=== PATIENT | female | born 1975 | race Caucasian/White ===

== ENCOUNTER 2021-04-18 10:20 | Inpatient (IN) | payer SELFPAY ==
[~2021-04-18] VITALS: Ht 172 cm; Wt 90.0 kg
[2021-04-18] VITALS (8 sets, daily range): BP systolic 117–140; BP diastolic 81–104
[~2021-04-18 10:20] MED LIST: BUTA-234 PO; CYCL10TA9 PO; DCS100C PO; DOXY100C2 PO; HCT25T PO; HYDR-3454 PO; HYDR-707 PO; HYDR-757 PO; HYDR1TAB PO; IBP600T1 PO; IBUP800T26 PO; LABE100T2 PO; LEVO175T3 PO; LEVO75TA57; LISI1TAB10 PO; LVT.1T PO; METF-380 PO; METH4TAB PO; NAPR-243 PO; NITR100C3 PO; PRD20T PO; PREG100C22 PO; PREN1TAB39 PO; PROM25SU10 PR; TRM50T PO; TYLENOL
[2021-04-18] MEDS ORDERED: fentaNYL INJ 100 MCG/2 ML AMP IVP STA ×2 (10:55→13:28)
[2021-04-18] MEDS ORDERED: NS IV 1000 ML 1,000 ML IV STA (10:55)
[2021-04-18] MEDS ORDERED: ONDANSETRON 4 MG/2 ML (SDV) Z0FRAN IVP ONE (11:00)
--- NOTE | 2021-04-18 11:00 | ED Abdominal Pain ---
General Chief Complaint: Abdominal/GI Problems Stated Complaint: ABD PAIN Nursing Triage Note: ARRIVED VIA WC TO ROOM 08. COMPLAINS OF SEVERE ABD PAIN STARTING IN THE MIDDLE OF THE NIGHT. STATES THIS HAPPENED BEFORE AND SHE HAD A RUPTURED COLON AND HAD 24" REMOVED. Source of Information: Patient Exam Limitations: No Limitations History of Present Illness Date Seen by Provider: Apr 18, 2021 Time Seen by Provider: 10:57 Initial Comments Patient is a 46-year-old female presents ED with abdominal pain. Sharp stabbing generalized abdominal pain started yesterday evening and has increased. Pain is worse in her mid upper abdomen. History of bowel resection secondary to diverticulitis with perforation., Cholecystectomy, tubal ligation, hysterectomy. She reports nausea with vomiting yesterday. Nauseous today. She had a normal bowel movement today. She states this feels very similar to her perforation bowel. Denies chest pain, cough, sore throat, wheezing, headache, dizziness. Denies taking thing for pain. Patient in moderate distress on arrival. She states she is urinating frequently this appears normal. Allergies and Home Medications Allergies Coded Allergies: meperidine (Unverified Allergy, Mild, 03/29/09) morphine (Unverified Allergy, Mild, 06/11/08) prochlorperazine (Unverified Allergy, Mild, 06/11/08) ketamine (Verified Allergy, Unknown, 04/18/21) Patient Home Medication List Home Medication List Reviewed: Yes Levothyroxine Sodium (Levothyroxine Sodium) 200 Mcg Tablet, 200 MCG PO DAILY, (Reported) Entered as Reported by: EMIL TEE on 04/18/21 1429 Last Action: Reviewed Naproxen Sodium (Aleve) 220 Mg Tablet, 220 MG PO DAILY PRN for PAIN-MILD (1-4), (Reported) Entered as Reported by: EMIL TEE on 04/18/21 1431 Last Action: Reviewed Review of Systems Review of Systems Constitutional: No chills, No diaphoresis, No fever, No malaise EENTM: No Eye Pain, No Eye Tearing, No Throat Pain, No Throat Swelling Respiratory: Denies Cough, Denies SOA With Exertion, Denies SOA at Rest Cardiovascular: Denies Chest Pain, Denies Edema Gastrointestinal: Abdominal Pain; Denies Constipated, Denies Diarrhea, Denies Difficulty Swallowing, Denies Nausea, Denies Vomiting Genitourinary: Denies Drainage Musculoskeletal: No back pain, No muscle pain, No muscle stiffness Skin: No change in color, No change in hair/nails All Other Systems Reviewed Negative Unless Noted: Yes Past [id number]-[id number] Hx Patient Social History Smoking Status: Current Everyday Smoker Substance use?: Yes Substance type: Marijuana Alcohol Use?: No Past Medical History Section, Gallbladder, Tubal Ligation Hypertension Physical Exam Vital Signs Vital Signs - First Documented 04/18/21 10:27 Temp 36.1 Pulse 93 Resp 16 B/P (MAP) 163/120 (134) Pulse Ox 100 O2 Delivery Room Air Capillary Refill : Less Than 3 Seconds Height/Weight/BMI Height: 5'8" Weight: 294lbs. oz. [id number]; 30.00 BMI Method:Stated General Appearance: WD/WN, no apparent distress HEENT: PERRL/EOMI, normal ENT inspection, TMs normal Neck: non-tender, full range of motion, supple, normal inspection Respiratory: chest non-tender, lungs clear, normal breath sounds, no respiratory distress Cardiovascular: regular rate, rhythm, no edema, no gallop, no JVD, no murmur Gastrointestinal: normal bowel sounds, no organomegaly, no pulsatile mass, tenderness (Generalized tenderness, mid upper abdominal tenderness with guarding. 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 as tested, no motor/sensory deficits, alert, normal mood/affect, oriented x 3 Progress/Results/Core Measures Results/Orders Lab Results Laboratory Tests Test 04/18/21 10:34 04/18/21 12:07 Range/Units White Blood Count 12.1 H 4.3-11.0 10^3/uL Red Blood Count 4.24 3.80-5.11 10^6/uL Hemoglobin 6.9 *L 11.5-16.0 g/dL Hematocrit 26 L 35-52 % Mean Corpuscular Volume 62 L 80-99 fL Mean Corpuscular Hemoglobin 16 L 25-34 pg Mean Corpuscular Hemoglobin Concent 26 L 32-36 g/dL Red Cell Distribution Width 20.5 H 10.0-14.5 % Platelet Count 606 H 130-400 10^3/uL Mean Platelet Volume 9.6 9.0-12.2 fL Immature Granulocyte % (Auto) 1 % Neutrophils (%) (Auto) 66 42-75 % Lymphocytes (%) (Auto) 24 12-44 % Monocytes (%) (Auto) 6 0-12 % Eosinophils (%) (Auto) 3 0-10 % Basophils (%) (Auto) 1 0-10 % Neutrophils # (Auto) 8.0 H 1.8-7.8 10^3/uL Lymphocytes # (Auto) 2.8 1.0-4.0 10^3/uL Monocytes # (Auto) 0.7 0.0-1.0 10^3/uL Eosinophils # (Auto) 0.4 H 0.0-0.3 10^3/uL Basophils # (Auto) 0.1 0.0-0.1 10^3/uL Immature Granulocyte # (Auto) 0.1 0.0-0.1 10^3/uL Sodium Level 134 L 135-145 MMOL/L Potassium Level 3.7 3.6-5.0 MMOL/L Chloride Level 104 98-107 MMOL/L Carbon Dioxide Level 20 L 21-32 MMOL/L Anion Gap 10 5-14 MMOL/L Blood Urea Nitrogen 11 7-18 MG/DL Creatinine 0.89 0.60-1.30 MG/DL Estimat Glomerular Filtration Rate 82 BUN/Creatinine Ratio 12 Glucose Level 87 70-105 MG/DL Calcium Level 10.4 H 8.5-10.1 MG/DL Corrected Calcium 10.2 H 8.5-10.1 MG/DL Total Bilirubin 0.2 0.1-1.0 MG/DL Aspartate Amino Transf (AST/SGOT) 13 5-34 U/L Alanine Aminotransferase (ALT/SGPT) 6 0-55 U/L Alkaline Phosphatase 70 40-136 U/L Total Protein 8.1 6.4-8.2 GM/DL Albumin 4.3 3.2-4.5 GM/DL Lipase 8 8-78 U/L Urine Color YELLOW Urine Clarity SL CLOUDY Urine pH 7.0 5-9 Urine Specific Prue 1.010 L 1.016-1.022 Urine Protein NEGATIVE NEGATIVE Urine Glucose (UA) NEGATIVE NEGATIVE Urine Ketones NEGATIVE NEGATIVE Urine Nitrite POSITIVE H NEGATIVE Urine Bilirubin NEGATIVE NEGATIVE Urine Urobilinogen 0.2 < = 1.0 MG/DL Urine Leukocyte Esterase 2+ H NEGATIVE Urine RBC (Auto) NEGATIVE NEGATIVE Urine RBC 2-5 H /HPF Urine WBC 10-25 H /HPF Urine Squamous Epithelial Cells 2-5 /HPF Urine Crystals NONE /LPF Urine Bacteria LARGE H /HPF Urine Casts PRESENT /LPF Urine Granular Casts 0-2 H /LPF Urine Mucus NEGATIVE /LPF Urine Culture Indicated YES My Orders Orders - HAYLEY NEWMAN Cbc With Automated Diff (04/18/21 10:51) Comprehensive Metabolic Panel (04/18/21 10:51) Lipase (04/18/21 10:51) Ua Culture If Indicated (04/18/21 10:51) Ondansetron Injection (Zofran Injectio (04/18/21 11:00) Ns Iv 1000 Ml (Sodium Chloride 0.9%) (04/18/21 10:55) Fentanyl Inj (Sublimaze Injection) (04/18/21 10:55) Ct Abdomen/Pelvis W (04/18/21 10:56) Iohexol Injection (Omnipaque 350 Mg/Ml 1 (04/18/21 11:30) Received Contrast (Hold Metformin- Contr (04/18/21 11:30) Ns (Ivpb) (Sodium Chloride 0.9% Ivpb Bag (04/18/21 11:30) Sodium Chloride Flush (Catheter Flush Sy (04/18/21 11:30) Type And Screen (04/18/21 11:28) Pantoprazole Injection (Protonix Injecti (04/18/21 11:30) Pantoprazole Injection (Protonix Injecti (04/18/21 11:34) Urine Culture (04/18/21 12:07) Red Cells Leukocytes Reduced (04/18/21 12:31) Admission Order(Inpt,Obs,Sdc) (04/18/21 12:35) Cbc With Automated Diff (04/19/21 05:00) Comprehensive Metabolic Panel (04/19/21 05:00) Iv Maintain (Order) (04/18/21 12:35) Patient May Use Own Meds, All (Patient M (04/18/21 12:45) Initiate Admission Nursing Pro .admission (04/18/21 12:35) Therapeutic Activity Goals: .PRN (04/18/21 12:35) Naloxone Injection (Narcan Injection) (04/18/21 12:45) Code/Resuscitation (04/18/21 12:35) Ambulate 08,12,20 (04/18/21 12:35) Sequential Compression Device ONCE (04/18/21 12:35) Initiate Admission Nursing Pro .admission (04/18/21 12:35) Medications Given in ED Current Medications Medications Dose Ordered Sig/Galileo Route Start Time Stop Time Status Last Admin Dose Admin Iohexol 100 ml ONCE ONCE IV 04/18/21 11:30 04/18/21 11:31 DC 04/18/21 12:00 97 ML Ondansetron HCl 4 mg ONCE ONCE IVP 04/18/21 11:00 04/18/21 11:01 DC 04/18/21 11:14 4 MG Pantoprazole 80 mg ONCE ONCE IV 04/18/21 11:30 04/18/21 11:31 DC 04/18/21 11:35 80 MG Sodium Chloride 10 ml NEEDED PRN IV 04/18/21 11:30 04/18/21 12:02 10 ML Sodium Chloride 100 ml ONCE ONCE IV 04/18/21 11:30 04/18/21 11:31 DC 04/18/21 12:02 80 ML Vital Signs/I&O 04/18/21 10:27 Temp 36.1 Pulse 93 Resp 16 B/P (MAP) 163/120 (134) Pulse Ox 100 O2 Delivery Room Air Blood Pressure Mean: 134 Departure Communication (Admissions) Time/Spoke to Admitting Phy: 12:[address] Moctezuma regarding possible closed-loop bowel ob struction. Recommends n.p.o. and will consult. Potential surgery may be needed. Patient does have a history of anemia iron deficiency. Not currently on supplementation. History of fusions of the past. Her hemoglobin was 6.9. Low hematocrit. Hemoccult negative. She does take Motrin daily. Patient was ordered 1 unit of blood transfusion. Was given IV Protonix 80 mg. Due to current symptoms and findings patient will be admitted to the hospitalist. Discussed patient Dr. Marcelino who agrees except patient at this time. Patient pain improved. No active vomiting. Currently n.p.o. urinalysis concerning for UTI. She was given a dose of Rocephin here. Impression Primary Impression: Anemia Additional Impression: Abdominal pain Disposition: 09 ADMITTED INPATIENT Condition: Stable Admissions Decision to Admit Reason: Admit from ER (General) Decision to Admit/Date: Apr 18, 2021 Time/Decision to Admit Time: 12:44 Departure-Patient Inst. Referrals: NO,LOCAL PHYSICIAN (PCP/Family) Primary Care Physician HAYLEY NEWMAN Apr 18, 2021 11:00
[2021-04-18 11:17] LABS: BASOPHILS # (AUTO) 0.1 10^3/uL (0.0-0.1); BASOPHILS % (AUTO) 1 % (0-10); EOSINOPHILS # (AUTO) 0.4 10^3/uL (0.0-0.3); EOSINOPHILS % (AUTO) 3 % (0-10); HEMATOCRIT 26 % (35-52); LYMPHOCYTES # (AUTO) 2.8 10^3/uL (1.0-4.0); LYMPHOCYTES % (AUTO) 24 % (12-44); MEAN CORPUSCULAR HEMOGLOBIN 16 pg (25-34); MEAN CORPUSCULAR HGB CONC 26 g/dL (32-36); MEAN CORPUSCULAR VOLUME 62 fL (80-99); MEAN PLATELET VOLUME 9.6 fL (9.0-12.2); MONOCYTES # (AUTO) 0.7 10^3/uL (0.0-1.0); MONOCYTES % (AUTO) 6 % (0-12); NEUTROPHILS % (AUTO) 66 % (42-75); PLATELET COUNT 606 10^3/uL (130-400); WHITE BLOOD COUNT 12.1 10^3/uL (4.3-11.0)
[2021-04-18 11:28] LABS: HEMOGLOBIN 6.9 g/dL (11.5-16.0)
[2021-04-18 11:29] LABS: ALBUMIN 4.3 GM/DL (3.2-4.5)
[2021-04-18 11:30] LABS: POTASSIUM 3.7 MMOL/L (3.6-5.0)
[2021-04-18] MEDS ORDERED: NS 100 ML (IVPB) BAG IV ONE (11:30)
[2021-04-18] MEDS ORDERED: CATHETER FLUSH 10 ML SYR IV PRN (11:30)
[2021-04-18] MEDS ORDERED: IOHEXOL 350 MG/ML 100 ML (OMNIPAQUE 350) VIAL IV ONE (11:30)
[2021-04-18] MEDS ORDERED: PANTOPRAZOLE 40 MG (PROTONIX) VIAL IV ONE (11:30)
[2021-04-18] MEDS ORDERED: HOLD METFORMIN - RECEIVED CONTRAST 20 ML VIAL IV SCH (11:30)
[2021-04-18 11:31] LABS: CALCIUM 10.4 MG/DL (8.5-10.1)
[2021-04-18 11:32] LABS: TOTAL PROTEIN 8.1 GM/DL (6.4-8.2)
[2021-04-18 11:34] LABS: BILIRUBIN,TOTAL 0.2 MG/DL (0.1-1.0)
[2021-04-18] MEDS ORDERED: PANTOPRAZOLE 40 MG (PROTONIX) VIAL ONE (11:34)
[2021-04-18 11:36] LABS: CREATININE SERUM 0.89 MG/DL (0.60-1.30)
[2021-04-18 12:16] LABS: BILIRUBIN,URINE NEGATIVE (NEGATIVE); CLARITY,URINE SL CLOUDY; COLOR,URINE YELLOW; GLUCOSE, URINE (UA) NEGATIVE (NEGATIVE); KETONES,URINE NEGATIVE (NEGATIVE); LEUKOCYTE ESTERASE ,URINE 2+ (NEGATIVE); NITRITE,URINE POSITIVE (NEGATIVE); PROTEIN,URINE NEGATIVE (NEGATIVE)
--- NOTE | 2021-04-18 12:20 | Diagnostic Imaging Report ---
PROCEDURE: CT abdomen and pelvis with contrast. TECHNIQUE: Multiple contiguous axial images were obtained through the abdomen and pelvis after administration of intravenous contrast. Auto Exposure Controls were utilized during the CT exam to meet ALARA standards for radiation dose reduction. All CT scans use one or more of the following dose optimizing techniques: automated exposure control, MA and/or KvP adjustment based on patient size and exam type or iterative reconstruction. INDICATION: Severe abdominal pain. Correlation is made with prior CT from 08/20/2013. The lung bases are clear. A mild low density throughout the liver is again noted consistent with hepatic steatosis. No discrete liver mass is detected. Gallbladder surgically absent. No biliary ductal dilatation is identified. Pancreas and spleen are unremarkable. No adrenal mass is detected. Kidneys show no acute feature. Aorta is nonaneurysmal. Evaluation of bowel loops does show gaseous distended bowel loop in the upper midline abdomen which has the appearance of large bowel. There is a somewhat of a swirling pattern in the central mesentery. There does appear to be transition present in the right lower quadrant features are concerning for a bowel obstruction. Swirling pattern does raise a question of a possible closed-loop obstruction. There are extensive postsurgical changes in the lower abdomen and pelvis. No free fluid or fluid collection is seen apart from trace free fluid in the pelvis. No free air. There is a 5.5 cm cystic mass in the left adnexa, likely ovarian. Uterus and bladder are unremarkable. IMPRESSION: 1. There is a gaseous distended bowel loop in the upper midline abdomen which has the appearance of the distended colonic bowel loop. There is a swirling pattern in the mesentery just inferior to this and the possibility of a closed loop obstruction cannot be entirely excluded. There is no significant bowel wall thickening or pneumatosis present. There is no free air. Remaining bowel loops throughout the abdomen and pelvis are normal caliber. No abscess formation is seen. There are extensive postoperative changes throughout the abdomen and pelvis. Dictated by: Dictated on workstation # [id number]
[2021-04-18 12:25] LABS: BACTERIA,URINE LARGE /HPF; GRANULAR CASTS,URINE 0-2 /LPF
[2021-04-18] MEDS ORDERED: cefTRIAXone 1 GM PRE-MIX 50 ML IV STA (12:43)
[2021-04-18] MEDS ORDERED: PATIENT MAY USE OWN MEDS, ALL PO SCH (12:45)
[2021-04-18] MEDS ORDERED: NALOXONE 0.4 MG/ML 1 ML (NARCAN) VIAL IV PRN (12:45)
--- NOTE | 2021-04-18 13:00 | Consultation - Surgery ---
KATY ELLIS 04/18/21 1300: History of Present Illness History of Present Illness Patient Consulted On(pk/time) 04/18/21 12:56 Date Seen by Provider: Apr 18, 2021 Time Seen by Provider: 12:30 Reason for Visit: abdominal pain History of Present Illness 46 yo female w/ anemia, hypothyroidism and hx of bowel resection presented to the ER with diffuse, severe abdominal pain. The pain was 10/10 at its worst. It was worse with movement and heat did not improve it. The pt had a bout of diverticulitis in May of 2019 that perforated. She had 2 feet of her descending colon removed because it "." She had a colostomy for 6 months, before having reversal surgery in November of that year. The pt states her sx now are similar to how she felt then. The pt last had a bm yesterday which was brown and had no blood. She vomited yesterday. It did not have blood. She has not vomited here. The pt's last colonoscopy and EGD were in November of 2019. She doesn't know if they found polyps. The pt reports having acid reflux and that the EGD showed acidic changes. No reflux meds reported. The pts Hgb is currently 6.9. Pt denies CP, SOB, fever, diarrhea, and cough at this time. Last ate 6pm yesterday. Allergies and Home Medications Allergies Coded Allergies: meperidine (Unverified Allergy, Mild, 03/29/09) morphine (Unverified Allergy, Mild, 06/11/08) prochlorperazine (Unverified Allergy, Mild, 06/11/08) ketamine (Verified Allergy, Unknown, 04/18/21) Patient Home Medication List Levothyroxine Sodium (Levothyroxine Sodium) 200 Mcg Tablet, 200 MCG PO DAILY, (Reported) Entered as Reported by: EMIL TEE on 04/18/21 1429 Last Action: Reviewed Naproxen Sodium (Aleve) 220 Mg Tablet, 220 MG PO DAILY PRN for PAIN-MILD (1-4), (Reported) Entered as Reported by: EMIL TEE on 04/18/21 1431 Last Action: Reviewed Past Hbhukzz-Pwdfne-Pghwvf Hx Patient Social History Smoking Status: Current Everyday Smoker (1 pack/week for 3-4 years total in her life) Recent Hopitalizations: No Alcohol Use?: Yes (once or twice per year) Substance type: Marijuana (every couple days) Have you traveled recently?: No Surgeries Surgeries: Abdominal (colon resection), Section (four), Gallbladder, Tubal Ligation Respiratory History of Respiratory Disorde: No Cardiovascular History of Cardiac Disorders: No Genitourinary History of Genitourinary Disor: Yes Genitourinary Disorders: Kidney Stones Gastrointestinal History of Gastrointestinal Di: Yes Gastrointestinal Disorders: Gastroesophageal Reflux, Diverticulosis (diverticulitis and colon resection), Gall Bladder Disease Endocrine History of Endocrine Disorders: Yes Endocrine Disorders: Hypothyroidsim Cancer History of Cancer: No Family Medical History Significant Family History: Stroke (mom and sister; sister at 46) Review of Systems-General Constitutional: chills, dizziness (have been recently; not now); No fever; weight loss (lost 160 pounds since 2019) EENTM: No hearing loss, No vision loss Respiratory: No cough, No hemoptysis, No short of breath Cardiovascular: No chest pain, No palpitations Gastrointestinal: abdominal pain; No constipation, No diarrhea, No hematemesis, No heartburn, No melena; nausea, vomiting (yesterday) Musculoskeletal: No joint pain; neck pain (laying down) Skin: No lesions, No rash Psychiatric/Neurological: Denies Anxiety, Denies Depressed, Denies Headache, Denies Seizure Physical Exam-General Problems Physical Exam Vital Signs Vital Signs - First Documented 04/18/21 10:27 Temp 36.1 Pulse 93 Resp 16 B/P (MAP) 163/120 (134) Pulse Ox 100 O2 Delivery Room Air Capillary Refill : Less Than 3 Seconds General Appearance: mild distress, obese, other (lips pale) Eyes: Bilateral Eye Normal Inspection, Bilateral Eye PERRL, Bilateral Eye EOMI HEENT: PERRL/EOMI; No photophobia Neck: supple, normal inspection Respiratory: lungs clear, normal breath sounds, no respiratory distress, no accessory muscle use Cardiovascular: regular rate, rhythm, no murmur Peripheral Pulses: 2+ Radial Pulses (R), 2+ Radial Pulses (L) Gastrointestinal: soft, no pulsatile mass; No guarding; tenderness (diffuse; especially LLQ and epigastric) Extremities: normal inspection, no pedal edema Neurologic/Psychiatric: alert, oriented x 3, other (distressed from pain; te reva) Skin: normal color, warm/dry Data Review Labs Laboratory Tests 04/18/21 10:34: White Blood Count 12.1H, Red Blood Count 4.24, Hemoglobin 6.9*L, Hematocrit 26L, Mean Corpuscular Volume 62L, Mean Corpuscular Hemoglobin 16L, Mean Corpuscular Hemoglobin Concent 26L, Red Cell Distribution Width 20.5H, Platelet Count 606H, Mean Platelet Volume 9.6, Immature Granulocyte % (Auto) 1, Neutrophils (%) (Auto) 66, Lymphocytes (%) (Auto) 24, Monocytes (%) (Auto) 6, Eosinophils (%) (Auto) 3, Basophils (%) (Auto) 1, Neutrophils # (Auto) 8.0H, Lymphocytes # (Auto) 2.8, Monocytes # (Auto) 0.7, Eosinophils # (Auto) 0.4H, Basophils # (Auto) 0.1, Immature Granulocyte # (Auto) 0.1, Sodium Level 134L, Potassium Level 3.7, Chloride Level 104, Carbon Dioxide Level 20L, Anion Gap 10, Blood Urea Nitrogen 11, Creatinine 0.89, Estimat Glomerular Filtration Rate 82, BUN/Creatinine Ratio 12, Glucose Level 87, Calcium Level 10.4H, Corrected Calcium 10.2H, Total Bilirubin 0.2, Aspartate Amino Transf (AST/SGOT) 13, Alanine Aminotransferase (ALT/SGPT) 6, Alkaline Phosphatase 70, Total Protein 8.1, Albumin 4.3, Lipase 8 04/18/21 12:07: Urine Color YELLOW, Urine Clarity SL CLOUDY, Urine pH 7.0, Urine Specific [place] 1.010L, Urine Protein NEGATIVE, Urine Glucose (UA) NEGATIVE, Urine Ketones NEGATIVE, Urine Nitrite POSITIVEH, Urine Bilirubin NEGATIVE, Urine Urobilinogen 0.2, Urine Leukocyte Esterase 2+H, Urine RBC (Auto) NEGATIVE, Urine RBC 2-5H, Urine WBC 10-25H, Urine Squamous Epithelial Cells 2-5, Urine Crystals NONE, Urine Bacteria LARGEH, Urine Casts PRESENT, Urine Granular Casts 0-2H, Urine Mucus NEGATIVE, Urine Culture Indicated YES Radiology CT ABDOMEN/PELVIS W PROCEDURE: CT abdomen and pelvis with contrast. TECHNIQUE: Multiple contiguous axial images were obtained through the abdomen and pelvis after administration of intravenous contrast. Auto Exposure Controls were utilized during the CT exam to meet ALARA standards for radiation dose reduction. All CT scans use one or more of the following dose optimizing techniques: automated exposure control, MA and/or KvP adjustment based on patient size and exam type or iterative reconstruction. INDICATION: Severe abdominal pain. Correlation is made with prior CT from 08/20/2013. The lung bases are clear. A mild low density throughout the liver is again noted consistent with hepatic steatosis. No discrete liver mass is detected. Gallbladder surgically absent. No biliary ductal dilatation is identified. Pancreas and spleen are unremarkable. No adrenal mass is detected. Kidneys show no acute feature. Aorta is nonaneurysmal. Evaluation of bowel loops does show gaseous distended bowel loop in the upper midline abdomen which has the appearance of large bowel. There is a somewhat of a swirling pattern in the central mesentery. There does appear to be transition present in the right lower quadrant features are concerning for a bowel obstruction. Swirling pattern does raise a question of a possible closed-loop obstruction. There are extensive postsurgical changes in the lower abdomen and pelvis. No free fluid or fluid collection is seen apart from trace free fluid in the pelvis. No free air. There is a 5.5 cm cystic mass in the left adnexa, likely ovarian. Uterus and bladder are unremarkable. IMPRESSION: 1. There is a gaseous distended bowel loop in the upper midline abdomen which has the appearance of the distended colonic bowel loop. There is a swirling pattern in the mesentery just inferior to this and the possibility of a closed loop obstruction cannot be entirely excluded. There is no significant bowel wall thickening or pneumatosis present. There is no free air. Remaining bowel loops throughout the abdomen and pelvis are normal caliber. No abscess formation is seen. There are extensive postoperative changes throughout the abdomen and pelvis. Assessment/Plan Assessment/Plan Assessment/Plan Diffuse abdominal pain- possible obstruction Hx colon resection/diverticulitis/perforation 2020 Anemia (Hgb 6.9) Vomiting- resolved HTN (163/120) UTI Negative hemoccult Awaiting exploratory surgery NPO IVFs Will need abx for UTI postop Pain management May need blood transfusion Monitor labs and vitals KARENA ARECHIGA DO 04/18/21 1615: History of Present Illness History of Present Illness Time Seen by Provider: 13:14 History of Present Illness Surgery asked to consent regarding abdominal pain. HPI per ED: Patient is a 46-year-old female presents ED with abdominal pain. Sharp stabbing generalized abdominal pain started yesterday evening and has increased. Pain is worse in her mid upper abdomen. History of bowel resection secondary to diverticulitis with perforation., Cholecystectomy, tubal ligation, hysterectomy. She reports nausea with vomiting yesterday. Nauseous today. She had a normal bowel movement today. She states this feels very similar to her perforation bowel. Denies chest pain, cough, sore throat, wheezing, headache, dizziness. Denies taking thing for pain. Patient in moderate distress on arrival. She states she is urinating frequently this appears normal. When I saw pt she was having pain and when I gently touched her abdomen she started crying and tensed up; pain was severe. She knows she is anemic, but refuses to take the iron. [place] hematochezia or melena. She is worried because this is what it felt like last time she had a portion of colon removed. It is worse than her diverticulitis episode. Allergies and Home Medications Allergies Coded Allergies: meperidine (Unverified Allergy, Mild, 03/29/09) morphine (Unverified Allergy, Mild, 06/11/08) prochlorperazine (Unverified Allergy, Mild, 06/11/08) ketamine (Verified Allergy, Unknown, 04/18/21) Patient Home Medication List Home Medication List Reviewed: Yes Levothyroxine Sodium (Levothyroxine Sodium) 200 Mcg Tablet, 200 MCG PO DAILY, (Reported) Entered as Reported by: EMIL TEE on 04/18/21 1429 Last Action: Reviewed Naproxen Sodium (Aleve) 220 Mg Tablet, 220 MG PO DAILY PRN for PAIN-MILD (1-4), (Reported) Entered as Reported by: EMIL TEE on 04/18/21 1431 Last Action: Reviewed Past Jfxtgje-Bcetob-Simeqm Hx Patient Social History Smoking Status: Current Everyday Smoker (1 pack/week for 3-4 years total in her life) Alcohol Use?: Yes (once or twice per year) Substance type: Marijuana (every couple days) Surgeries History of Surgeries: Yes Surgeries: Abdominal (colon resection), Section (four), Gallbladder, Tubal Ligation Respiratory History of Respiratory Disorde: No Cardiovascular History of Cardiac Disorders: No Neurological History of Neurological Disord: No Genitourinary History of Genitourinary Disor: Yes Genitourinary Disorders: Kidney Stones Gastrointestinal History of Gastrointestinal Di: Yes Gastrointestinal Disorders: Gastroesophageal Reflux, Obstructive Bowel, Diverticulosis (diverticulitis and colon resection), Gall Bladder Disease Musculoskeletal History of Musculoskeletal Dis: No Endocrine History of Endocrine Disorders: Yes Endocrine Disorders: Hypothyroidsim HEENT History of HEENT Disorders: No Cancer History of Cancer: No Psychosocial History of Psychiatric Problem: No Integumentary History of Skin or Integumenta: No Family Medical History Significant Family History: Stroke (mom and sister; sister at 46) Review of Systems-General Constitutional: chills, dizziness (have been recently; not now); No fever; weight loss (lost 160 pounds since 2019) EENTM: No hearing loss, No vision loss Respiratory: No cough, No hemoptysis, No short of breath Cardiovascular: No chest pain, No palpitations Gastrointestinal: abdominal pain; No constipation, No diarrhea, No hematemesis, No heartburn, No melena; nausea, vomiting (yesterday) Genitourinary: No dysuria, No frequency, No hematuria Musculoskeletal: No joint pain; neck pain (laying down) Skin: No lesions, No rash Psychiatric/Neurological: Denies Anxiety, Denies Depressed, Denies Headache, Denies Seizure Physical Exam-General Problems Physical Exam General Appearance: mild distress (but severe after palpation of abdomen), obese, other (lips pale) Eyes: Bilateral Eye PERRL, Bilateral Eye EOMI HEENT: No scleral icterus (R), No scleral icterus (L), No photophobia; other (mucous membranes moist) Neck: supple, normal inspection Respiratory: lungs clear, normal breath sounds, no respiratory distress, no accessory muscle use Cardiovascular: regular rate, rhythm, no murmur Gastrointestinal: soft, no organomegaly, no pulsatile mass, guarding (voluntary), rebound, tenderness (diffuse; especially LLQ and epigastric) Rectal: deferred Back: no CVA tenderness, no vertebral tenderness Extremities: normal inspection, no pedal edema Neurologic/Psychiatric: vp sales II-XII nml as tested, alert, oriented x 3 Skin: normal color, warm/dry Lymphatic: no adenopathy (neck, axilla or groin) Data Review Radiology Date of Exam:04/18/21 CT ABDOMEN/PELVIS W PROCEDURE: CT abdomen and pelvis with contrast. TECHNIQUE: Multiple contiguous axial images were obtained through the abdomen and pelvis after administration of intravenous contrast. Auto Exposure Controls were utilized during the CT exam to meet ALARA standards for radiation dose reduction. All CT scans use one or more of the following dose optimizing techniques: automated exposure control, MA and/or KvP adjustment based on patient size and exam type or iterative reconstruction. INDICATION: Severe abdominal pain. Correlation is made with prior CT from 08/20/2013. The lung bases are clear. A mild low density throughout the liver is again noted consistent with hepatic steatosis. No discrete liver mass is detected. Gallbladder surgically absent. No biliary ductal dilatation is identified. Pancreas and spleen are unremarkable. No adrenal mass is detected. Kidneys show no acute feature. Aorta is nonaneurysmal. Evaluation of bowel loops does show gaseous distended bowel loop in the upper midline abdomen which has the appearance of large bowel. There is a somewhat of a swirling pattern in the central mesentery. There does appear to be transition present in the right lower quadrant features are concerning for a bowel obstruction. Swirling pattern does raise a question of a possible closed-loop obstruction. There are extensive postsurgical changes in the lower abdomen and pelvis. No free fluid or fluid collection is seen apart from trace free fluid in the pelvis. No free air. There is a 5.5 cm cystic mass in the left adnexa, likely ovarian. Uterus and bladder are unremarkable. IMPRESSION: 1. There is a gaseous distended bowel loop in the upper midline abdomen which has the appearance of the distended colonic bowel loop. There is a swirling pattern in the mesentery just inferior to this and the possibility of a closed loop obstruction cannot be entirely excluded. There is no significant bowel wall thickening or pneumatosis present. There is no free air. Remaining bowel loops throughout the abdomen and pelvis are normal caliber. No abscess formation is seen. There are extensive postoperative changes throughout the abdomen and pelvis. Dictated by: Dictated on workstation # [id number] Dict: 04/18/21 1205 Trans: 04/18/21 1547 [facility] [id number] Interpreted by: GEE MCRAE MD Electronically signed by: GEE MCRAE MD 04/18/21 1544 Assessment/Plan Assessment/Plan Assessment/Plan Diffuse abdominal pain- possible obstruction vs volvulus vs internal hernia, Hx colon resection/diverticulitis/perforation 2019 Anemia (Hgb 6.9) -Negative hemoccult Vomiting- resolved HTN (163/120) UTI Plan for Diagnostic Laparoscopy, possible exploratory laparotomy, possible bowel resection, NPO, IV fluids, pain control and anti-emetics as needed Will need abx for UTI postop, May need blood transfusion, Monitor labs and vitals I went over the films myself and then with the Radiologist; I also discussed her care with ER physician and Hospitalist. She is in such severe pain and I am concerned about volvulus or internal hernia (based on CT), that I believe we have to at least go to the OR and look to make sure it is not bad. I think there is a h igh possibility she may need some type of bowel resection. Pt stated do whatever you have to, you have to stop this pain. Went over risks and complications, not limited to pain, bleeding, infection, scar, damage to bowel and need for further procedure. All questions answered to her satisfaction. Supervisory-Addendum Brief Verification & Attestation Participated in pt care: history, MDM, physical Personally performed: exam, history, MDM, supervision of care Care discussed with: Medical Student Procedures: n/a Verification and Attestation of Medical Student E/M Service A medical student performed and documented this service. I then reviewed and verified all information documented by the medical student and made modifications to such information, when appropriate. I personally performed a physical exam, medical decision making and then discussed any differences between the notes and made revisions as necessary to create one note. Karena Arechiga , 04/18/21 , 16:23 KATY ELLIS Apr 18, 2021 13:00 KARENA ARECHIGA DO Apr 18, 2021 16:15
[2021-04-18] MEDS ORDERED: ONDANSETRON 4 MG/2 ML (SDV) Z0FRAN IV PRN (14:15)
--- NOTE | 2021-04-18 14:17 | History & Physical-Hospitalist ---
History of Present Illness HPI/Chief Complaint Pt is a 46-year-old female with a past medical history of bowel resection, hypothyroidism, hypertension who presented to the emergency department due to abdominal pain. She states that it started in the middle of the night all of a sudden. She has a history of a bowel perforation from diverticulitis in May 2019 resulting in a bowel resection. She states the pain felt similar to that prompting her to seek evaluation in the emergency department. She vomited once as well. CT revealed distended bowel loops in the upper midline abdomen and closed-loop obstruction cannot be ruled out. She is being admitted for further management and plan for exploratory laparotomy by surgery. Source: patient Date Seen 04/18/21 Time Seen by a Provider: 14:12 Attending Physician Trae Jorge MD PCP No,Local Physician Referring Physician Date of Admission Apr 18, 2021 at 12:37 Home Medications & Allergies Home Medications Reviewed patient Home Medication Reconciliation performed by pharmacy medication reconciliations studio technician and/or nursing. Patients Allergies have been reviewed. Allergies Allergies Coded Allergies meperidine (Unverified Allergy, Mild, 03/29/09) morphine (Unverified Allergy, Mild, 06/11/08) prochlorperazine (Unverified Allergy, Mild, 06/11/08) ketamine (Verified Allergy, Unknown, 04/18/21) Past Rqrpdhy-Pmozcf-Pcbpwa Hx Patient Social History Employed/Student: employed (veterinary assistant) Smoking Status: Current Someday Smoker Substance use?: Yes Substance type: Marijuana (every couple days) Alcohol Use?: Yes (once or twice per year) Current Status Advance Directives: No Primary Language: Hungarian Preferred Spoken Language: Hungarian Past Medical History Surgeries: Abdominal (colon resection), Bladder Surgery, Section (four), Gallbladder, Tubal Ligation Hypertension (resolved after surgery and weight loss ) Kidney Stones Gastroesophageal Reflux, Diverticulosis (diverticulitis and colon resection), Gall Bladder Disease Hypothyroidsim Family Medical History Reviewed Nursing Family Hx No Pertinent Family Hx, Stroke (mom and sister; sister at 46) Review of Systems Constitutional: No chills, No fever EENTM: no symptoms reported Respiratory: no symptoms reported Cardiovascular: No chest pain, No palpitations Gastrointestinal: abdominal pain, nausea, vomiting Genitourinary: no symptoms reported Musculoskeletal: no symptoms reported Skin: no symptoms reported Psychiatric/Neurological: No Symptoms Reported Physical Exam Physical Exam Vital Signs Vital Signs - First Documented 04/18/21 10:27 Temp 36.1 Pulse 93 Resp 16 B/P (MAP) 163/120 (134) Pulse Ox 100 O2 Delivery Room Air Capillary Refill : Less Than 3 Seconds Height, Weight, BMI Height: 5'8" Weight: 294lbs. oz. 133.887995la; 30.00 BMI Method:Stated General Appearance: No Apparent Distress, WD/WN, Obese HEENT: PERRL/EOMI, Moist Mucous Membranes Neck: Normal Inspection, Supple Respiratory: Lungs Clear, No Accessory Muscle Use, No Respiratory Distress Cardiovascular: Regular Rate, Rhythm, No Murmur Gastrointestinal: Normal Bowel Sounds; No Distended; Tenderness Extremity: No Calf Tenderness, No Pedal Edema Neurologic/Psychiatric: Alert, Oriented x3, Normal Mood/Affect Skin: Normal Color, Warm/Dry Results Results/Procedures Labs Laboratory Tests 04/18/21 10:34 04/19/21 05:59 Patient resulted labs reviewed. Imaging: Reviewed Imaging Report Imaging [facility], [place] NAME: NICKI SPARKS [facility] REC#: [id number] PT STATUS: REG ER : 1975 PHYSICIAN: HAYLEY NEWMAN ADMIT DATE: 04/18/21/ER Draft Date of Exam:04/18/21 CT ABDOMEN/PELVIS W PROCEDURE: CT abdomen and pelvis with contrast. TECHNIQUE: Multiple contiguous axial images were obtained through the abdomen and pelvis after administration of intravenous contrast. Auto Exposure Controls were utilized during the CT exam to meet ALARA standards for radiation dose reduction. All CT scans use one or more of the following dose optimizing techniques: automated exposure control, MA and/or KvP adjustment based on patient size and exam type or iterative reconstruction. INDICATION: Severe abdominal pain. Correlation is made with prior CT from 08/20/2013. The lung bases are clear. A mild low density throughout the liver is again noted consistent with hepatic steatosis. No discrete liver mass is detected. Gallbladder surgically absent. No biliary ductal dilatation is identified. Pancreas and spleen are unremarkable. No adrenal mass is detected. Kidneys show no acute feature. Aorta is nonaneurysmal. Evaluation of bowel loops does show gaseous distended bowel loop in the upper midline abdomen which has the appearance of large bowel. There is a somewhat of a swirling pattern in the central mesentery. There does appear to be transition present in the right lower quadrant features are concerning for a bowel obstruction. Swirling pattern does raise a question of a possible closed-loop obstruction. There are extensive postsurgical changes in the lower abdomen and pelvis. No free fluid or fluid collection is seen apart from trace free fluid in the pelvis. No free air. There is a 5.5 cm cystic mass in the left adnexa, likely ovarian. Uterus and bladder are unremarkable. IMPRESSION: 1. There is a gaseous distended bowel loop in the upper midline abdomen which has the appearance of the distended colonic bowel loop. There is a swirling pattern in the mesentery just inferior to this and the possibility of a closed loop obstruction cannot be entirely excluded. There is no significant bowel wall thickening or pneumatosis present. There is no free air. Remaining bowel loops throughout the abdomen and pelvis are normal caliber. No abscess formation is seen. There are extensive postoperative changes throughout the abdomen and pelvis. Dictated on workstation # [id number] Dict: 04/18/21 1205 Trans: 04/18/21 1220 CV [id number] Interpreted by: GEE MCRAE MD Electronically signed by: Assessment/Plan Admission Diagnosis Bowl Obstruction Admission Status: Inpatient Order (span 2 midnights) Reason for Inpatient Admission: see below Assessment and Plan Bowl Obstruction- closed loop Anemia Plan for ex lap today with Dr [place] Fentanyl for pain NPO IVF Transfused 1 unit pRBCs Will check iron levels Hypothyroidism Resume synthroid when able to PO HTN History of HTN but has been off meds since her bowel resection and over 100lb weight loss BP elevated on arrival but likely due to pain Trend UTI Rocephin in ER Await cultures DVT: Lovenox Diagnosis/Problems Diagnosis/Problems (1) Hypothyroidism (2) Bowel obstruction (3) Microcytic anemia TRAE JORGE MD Apr 18, 2021 14:17
[2021-04-18] MEDS ORDERED: LEVO200T6 PO (14:29)
[2021-04-18] MEDS ORDERED: LIDOCAINE/EPI 1%-1:200,000 (XYLOCAINE) 30 ML VIAL ONE (14:30)
[2021-04-18] MEDS ORDERED: NAPR220T66 PO (14:31)
[2021-04-18] MEDS: fentaNYL INJ 100 MCG/2 ML AMP IVP PRN ×4 (16:10→23:46)
[2021-04-18] MEDS: NS IV 1000 ML 1,000 ML IV SCH (16:12)
[2021-04-18] MEDS ORDERED: LIDOCAINE PF 2% 5 ML (XYLOCAINE) VIAL ONE (16:44)
[2021-04-18] MEDS ORDERED: ONDANSETRON 4 MG/2 ML (SDV) Z0FRAN ONE (16:44)
[2021-04-18] MEDS ORDERED: proPOfol 200 MG/20 ML (DIPRIVAN) VIAL IV ONE (16:44)
[2021-04-18] MEDS ORDERED: SEVOFLURANE (ULTANE) 15 ML INHAL SOLN ONE (16:44)
[2021-04-18] MEDS ORDERED: ROCURONIUM 10 MG/ML 5 ML SYRINGE IV ONE (16:44)
[2021-04-18] MEDS ORDERED: MIDAZOLAM 2 MG/2 ML (VERSED) VIAL ONE (16:45)
[2021-04-18] MEDS ORDERED: fentaNYL INJ 100 MCG/2 ML AMP ONE ×2 (16:45→19:06)
[2021-04-18] MEDS: LACTATED RINGERS 1,000 ML IV PRN ×2 (17:09→17:46)
[2021-04-18] MEDS ORDERED: SUCCINYLCHOLINE INJ 20 MG/1 ML 10 ML VIAL ONE (17:21)
[2021-04-18] MEDS ORDERED: GLYCOPYRROLATE 0.2 MG/ML (ROBINUL) 2 ML VIAL ONE (18:41)
[2021-04-18] MEDS ORDERED: NEOSTIGMINE 3 MG/3 ML VIAL ONE (18:41)
--- NOTE | 2021-04-18 18:50 | Progress Note-Post Operative ---
Post-Operative Progess Note Surgeon (s)/Matrix Drier Tender (s) Surgeon KARENA ARECHIGA DO Matrix Drier Tender: Roseanne Pre-Operative Diagnosis Severe abd pain, internal hernia vs volvulous Post-Operative Diagnosis Internal hernia Volvulous Partial large bowel obstruction Procedure & Operative Findings Date of Procedure 04/18/21 Procedure Performed/Findings Exploratory Laparotomy with release of bowel and right Colon resection with primary anastomosis Lysis of adhesions Anesthesia Type GET Estimated Blood Loss Estimated blood loss (mL): less than 20ml Specimens/Packing Specimens Removed right colon with TI and appendix adhesive band KARENA ARECHIGA DO Apr 18, 2021 18:50
[2021-04-18] MEDS ORDERED: fentaNYL INJ 100 MCG/2 ML AMP IVP ONE (19:00)
[2021-04-18] MEDS: metroNIDAZOLE 500MG/100ML IVPB 100 ML IV SCH (20:09)
[2021-04-18] MEDS: ONDANSETRON 4 MG/2 ML (SDV) Z0FRAN IVP PRN (20:09)
[2021-04-18] MEDS: LACTATED RINGERS 1,000 ML IV SCH (20:13)
[2021-04-18] MEDS: ceFAZolin 2 GM IV Premixed 50 ML IV SCH (21:21)
[2021-04-19] VITALS (8 sets, daily range): BP systolic 138–178; BP diastolic 84–96
--- NOTE | 2021-04-19 01:07 | OPERATIVE REPORT ---
DATE OF SERVICE: 04/18/2021 PREOPERATIVE DIAGNOSES: Possible internal hernia versus volvulus causing bowel obstruction, severe abdominal pain. POSTOPERATIVE DIAGNOSIS: Internal hernia with volvulus and adhesions. PROCEDURES: 1. Right colon resection with primary anastomosis. 2. Lysis of adhesion. 3. Release of adhesive band. SURGEON: Dr. Moctezuma. ROLLER PNEUMATIC: Abner Cronin DO. ANESTHESIA: General endotracheal tube. SPECIMEN: 1. Adhesive band. 2. Right colon with portion of terminal ileum, appendix. BLOOD LOSS: Less than 20 mL. FLUIDS: Per anesthesia. POSTOPERATIVE CONDITION: Stable. INDICATION FOR PROCEDURE: The patient is a 46-year-old female who came in with severe abdominal pain. She has a history of previous problem with bowels, unsure whether it was ischemic, which she said she had a large portion of the bowel removed. She also has a history of diverticulitis with perforation and colostomy and then reversal. I reviewed the CAT scan and she had what looked like a stricture in possibly two places, could not tell whether this was an internal hernia or a volvulus, but felt that she needed some type of surgical procedure. I had discussed possible laparoscopy with possible laparotomy, possible bowel resection. FINDINGS: The patient had an adhesive band coming off the mesentery of the right colon as well as a volvulus and actually an internal hernia. PROCEDURE NOTE: After informed consent was obtained, the patient was brought to the operating room, placed on the table in supine position. She was sterilely prepped and draped in normal fashion. Midline incision was made with #10 blade, carried down through the skin and subcutaneous tissues, started just above previous scar in the midline, carried down through the skin into subcutaneous tissue, then deepened down to subcutaneous tissue with Bovie electrocautery down to the fascia. Fascia was incised with Bovie electrocautery. This was entered the abdomen and then went superiorly and inferiorly to open this more and it looked like the large intestine appeared viable, but when we got in, noted almost necrotic, it was very purplish red adhesive band around the base of the mesentery and this cecum looked like a cecal volvulus. Released this band, the cecum was very dilated. I kept trying to rotate, would not lie in the abdomen normally and at this point, we elected to resect it. I had to open the incision superiorly and inferiorly with Bovie electrocautery. There were adhesions to the abdominal wall from previous surgeries. This was carefully taken down with Bovie electrocautery, freeing up the small intestine, still able to push this back in. There was an internal hernia. The small intestine came under the colon, probably from the repair after the diverticulitis surgery. So, the small intestine was kind of wrapping around the descending colon. Because the right colon kept turning and twisting on itself making this a cecal volvulus, we elected to remove this, made a defect in the terminal ileum bluntly as well as with Bovie electrocautery and then clamped CHELITA-75 across here, held for 30 seconds, then fired thereby cutting this and then came along the mesentery of the right colon with the LigaSure, clamping, coagulating and transecting coming across this and up across the omentum, freeing this up, we are trying to decide what would be the best way to reconnect this small intestine to the large intestine and actually we are trying to figure out what to do with the internal hernia because the terminal ileum was coming around the descending colon and remaining sigmoid and twisting on itself to attach to the cecum, elected to bring this out onto the left side and then attached the small intestine to the descending colon, made a defect in the small intestine on the antimesenteric border and then a defect in the tinea of the descending colon, put the large portion of the CHELITA in the colon and the small portion in the small intestine after making defects in them, then clamping this CHELITA-75 together with running 3-0 Vicryl crotch stitch to hold this together, held for 30 seconds, then fired thereby creating a [id number] functional end-to-end anastomosis and then came across the colon enterotomy and used another CHELITA-75 to clamp and fire, thereby closing this colon enterotomy and then took the rest of the large intestine off using LigaSure, clamping, coagulating and transecting in this fashion coming all the way across the right colon and across most of the transverse colon as well, so that now we had the small intestine hooked to the probable distal portion of the transverse colon. This is actually then now all on the left side, but then this laid in nicely. The descending colon laid over on the right side and all the small intestine was on the left side. Copiously irrigated the abdomen with normal saline, suctioned this out. There was very minimal bleeding during the case. Everything looked good in there and intestine was all viable, passed the adhesive band that we had initially removed off the table and then passed the right colon with portion of terminal ileum as well as appendix and portion of transverse colon off the table, then elected to close the incision with #1 double stranded PDS suture running from superior portion to inferior portion tying to itself, copiously irrigating the midline incision with saline and then closing the skin with victoria. Area was cleaned and dried and dressing placed. Dr. Cronin assisted in this case helping to make incisions, close incisions, identify anatomy, hold anatomy out of the way. Job ID: [id number] DocumentID: [id number] Dictated Date: 04/18/2021 21:57:59 Stone Breaker Date: 04/19/2021 01:07:36 Dictated By: KARENA MOCTEZUMA DO MTDD
[2021-04-19] MEDS: fentaNYL INJ 100 MCG/2 ML AMP IVP PRN ×8 (02:00→21:05)
[2021-04-19] MEDS: NS IV 1000 ML 1,000 ML IV SCH ×4 (03:50→19:40)
[2021-04-19] MEDS: metroNIDAZOLE 500MG/100ML IVPB 100 ML IV SCH (04:00)
[2021-04-19] MEDS: ceFAZolin 2 GM IV Premixed 50 ML IV SCH (04:01)
[2021-04-19] MEDS: LACTATED RINGERS 1,000 ML IV SCH ×4 (04:02→21:11)
[2021-04-19 06:09] LABS: BASOPHILS # (AUTO) 0.1 10^3/uL (0.0-0.1); BASOPHILS % (AUTO) 0 % (0-10); EOSINOPHILS % (AUTO) 0 % (0-10); HEMATOCRIT 26 % (35-52); LYMPHOCYTES # (AUTO) 0.9 10^3/uL (1.0-4.0); LYMPHOCYTES % (AUTO) 4 % (12-44); MEAN CORPUSCULAR HEMOGLOBIN 16 pg (25-34); MEAN CORPUSCULAR HGB CONC 25 g/dL (32-36); MEAN CORPUSCULAR VOLUME 64 fL (80-99); MEAN PLATELET VOLUME 9.5 fL (9.0-12.2); MONOCYTES # (AUTO) 0.6 10^3/uL (0.0-1.0); MONOCYTES % (AUTO) 3 % (0-12); NEUTROPHILS # (AUTO) 19.4 10^3/uL (1.8-7.8); NEUTROPHILS % (AUTO) 92 % (42-75); PLATELET COUNT 527 10^3/uL (130-400); WHITE BLOOD COUNT 21.1 10^3/uL (4.3-11.0)
[2021-04-19 06:11] LABS: HEMOGLOBIN 6.4 g/dL (11.5-16.0)
[2021-04-19 06:27] LABS: ALANINE AMINOTRANSFERASE < 6 U/L (0-55); ALBUMIN 3.5 GM/DL (3.2-4.5); ALKALINE PHOSPHATASE 59 U/L (40-136); BILIRUBIN,TOTAL 0.3 MG/DL (0.1-1.0); BUN/CREATININE RATIO 9; CALCIUM 8.8 MG/DL (8.5-10.1); CARBON DIOXIDE 17 MMOL/L (21-32); CHLORIDE 107 MMOL/L (98-107); CREATININE SERUM 0.82 MG/DL (0.60-1.30); GFR ESTIMATED 90; GLUCOSE 104 MG/DL (70-105); SODIUM 134 MMOL/L (135-145); TOTAL PROTEIN 6.7 GM/DL (6.4-8.2)
[2021-04-19 06:47] LABS: BAND NEUTROPHILS 6 %; LYMPHOCYTES % (MANUAL) 3 %; MONOCYTES % (MANUAL) 1 %; NEUTROPHILS % (MANUAL) 90 %; POLYCHROMASIA SLIGHT
[2021-04-19 06:48] LABS: BURR CELLS SLIGHT; ELLIPT/OVALOCYTES SLIGHT; HYPOCHROMASIA MARKED; MICROCYTOSIS MARKED
--- NOTE | 2021-04-19 07:04 | Progress Note - Surgery ---
KATY ELLIS 04/19/21 0704: Subjective Date Seen by a Provider: Apr 19, 2021 Time Seen by a Provider: 06:45 Subjective/Events-last exam Pt in pain with movement; she reports 10/10 abdominal pain overnight, but currently it is 3/10. The pain seems diffuse, she says its just "because she got cut open." She says she is having intermittent cramping spasms of her abdominal muscles. She is on fentanyl for pain. The pt is not passing gas and has not had a bowel movement. She is eating ice chips. Her dressing is almost saturated with dried blood. However, the incision itself is dry, pink and intact. Denies CP, SOB, fever, and N/V at this time. Review of Systems General: No Chills; Malaise HEENT: No Head Aches, No Visual Changes Pulmonary: No Dyspnea, No Cough Cardiovascular: No: Chest Pain, Palpitations Gastrointestinal: No: Nausea, Vomiting Genitourinary: No Dysuria; Other (catheter in) Musculoskeletal: No: neck pain, leg pain Neurological: No: Weakness, Change in speech Focused Exam Respiratory: Lungs Clear, No Accessory Muscle Use, No Respiratory Distress Cardiovascular: Regular Rate, Rhythm, No Murmur Peripheral Pulses: 2+ Radial Pulses (R), 2+ Radial Pulses (L) Skin: normal color, warm/dry Objective Exam Vital Signs Date Time Temp Pulse Resp B/P (MAP) Pulse Ox O2 Delivery O2 Flow Rate FiO2 04/19/21 03:53 36.2 55 20 174/96 (122) 100 Room Air 04/18/21 23:58 36.8 73 20 140/87 (104) 100 Room Air 04/18/21 22:24 Room Air 04/18/21 20:00 35.6 44 20 117/81 (93) 100 Room Air 04/18/21 19:40 36.4 9 129/81 (97) 100 Room Air 04/18/21 19:38 Room Air 04/18/21 19:30 Room Air 04/18/21 19:30 16 138/86 (103) 100 Room Air 04/18/21 19:20 13 100 OxyMask 1 04/18/21 19:16 OxyMask 3 04/18/21 19:10 16 139/88 (105) 100 OxyMask 3 04/18/21 19:05 OxyMask 8 04/18/21 19:00 23 136/91 (106) 100 OxyMask 8 04/18/21 18:51 36.2 16 131/90 (104) 100 OxyMask 8 04/18/21 18:51 OxyMask 8 04/18/21 15:04 37.0 67 20 140/104 (116) 96 Room Air 04/18/21 14:00 Room Air 04/18/21 13:50 78 16 163/107 100 Room Air 04/18/21 10:27 36.1 93 16 163/120 (134) 100 Room Air I & O 04/19/21 07:00 Intake Total 2070 ml Output Total 825 ml Balance 1245 ml Capillary Refill : Less Than 3 SecondsLess Than 3 Seconds General Appearance: No Apparent Distress, Obese Respiratory: Lungs Clear, No Accessory Muscle Use, No Respiratory Distress Cardiovascular: Regular Rate, Rhythm, No Murmur Peripheral Pulses: 2+ Radial Pulses (R), 2+ Radial Pulses (L) Gastrointestinal: soft, tenderness (diffuse; especially LLQ and RUQ), other (incision pink, intact and dry; dressing saturated with blood) Extremity: Normal Inspection, No Pedal Edema Neurologic/Psychiatric: Alert, Oriented x3, Normal Mood/Affect Skin: Normal Color, Warm/Dry Results Lab Laboratory Tests 04/18/21 10:34: White Blood Count 12.1H, Red Blood Count 4.24, Hemoglobin 6.9*L, Hematocrit 26L, Mean Corpuscular Volume 62L, Mean Corpuscular Hemoglobin 16L, Mean Corpuscular Hemoglobin Concent 26L, Red Cell Distribution Width 20.5H, Platelet Count 606H, Mean Platelet Volume 9.6, Immature Granulocyte % (Auto) 1, Neutrophils (%) (Auto) 66, Lymphocytes (%) (Auto) 24, Monocytes (%) (Auto) 6, Eosinophils (%) (Auto) 3, Basophils (%) (Auto) 1, Neutrophils # (Auto) 8.0H, Lymphocytes # (Auto) 2.8, Monocytes # (Auto) 0.7, Eosinophils # (Auto) 0.4H, Basophils # (Auto) 0.1, Immature Granulocyte # (Auto) 0.1, Sodium Level 134L, Potassium Level 3.7, Chloride Level 104, Carbon Dioxide Level 20L, Anion Gap 10, Blood Urea Nitrogen 11, Creatinine 0.89, Estimat Glomerular Filtration Rate 82, BUN/Creatinine Ratio 12, Glucose Level 87, Calcium Level 10.4H, Corrected Calcium 10.2H, Iron Level 10L, Total Iron Binding Capacity 498H, Unsaturated Iron Binding Capacity 488, Transferrin % Saturation 2L, Ferritin 7.2L, Total Bilirubin 0.2, Aspartate Amino Transf (AST/SGOT) 13, Alanine Aminotransferase (ALT/SGPT) 6, Alkaline Phosphatase 70, Total Protein 8.1, Albumin 4.3, Lipase 8 04/18/21 12:07: Urine Color YELLOW, Urine Clarity SL CLOUDY, Urine pH 7.0, Urine Specific Dickson 1.010L, Urine Protein NEGATIVE, Urine Glucose (UA) NEGATIVE, Urine Ketones NEGATIVE, Urine Nitrite POSITIVEH, Urine Bilirubin NEGATIVE, Urine Urobilinogen 0.2, Urine Leukocyte Esterase 2+H, Urine RBC (Auto) NEGATIVE, Urine RBC 2-5H, Urine WBC 10-25H, Urine Squamous Epithelial Cells 2-5, Urine Crystals NONE, Urine Bacteria LARGEH, Urine Casts PRESENT, Urine Granular Casts 0-2H, Urine Mucus NEGATIVE, Urine Culture Indicated YES 04/19/21 05:59: White Blood Count 21.1H, Red Blood Count 4.05, Hemoglobin 6.4*L, Hematocrit 26L, Mean Corpuscular Volume 64L, Mean Corpuscular Hemoglobin 16L, Mean Corpuscular Hemoglobin Concent 25L, Red Cell Distribution Width 19.9H, Platelet Count 527H, Mean Platelet Volume 9.5, Immature Granulocyte % (Auto) 1, Neutrophils (%) (Auto) 92H, Lymphocytes (%) (Auto) 4L, Monocytes (%) (Auto) 3, Eosinophils (%) (Auto) 0, Basophils (%) (Auto) 0, Neutrophils # (Auto) 19.4H, Lymphocytes # (Auto) 0.9L, Monocytes # (Auto) 0.6, Eosinophils # (Auto) 0.0, Basophils # (Auto) 0.1, Immature Granulocyte # (Auto) 0.1, Sodium Level 134L, Potassium Level 4.0, Chloride Level 107, Carbon Dioxide Level 17L, Anion Gap 10, Blood Urea Nitrogen 7, Creatinine 0.82, Estimat Glomerular Filtration Rate 90, BUN/Creatinine Ratio 9, Glucose Level 104, Calcium Level 8.8, Corrected Calcium 9.2, Total Bilirubin 0.3, Aspartate Amino Transf (AST/SGOT) 13, Alanine Aminotransferase (ALT/SGPT) < 6, Alkaline Phosphatase 59, Total Protein 6.7, Albumin 3.5, Neutrophils % (Manual) 90, Lymphocytes % (Manual) 3, Monocytes % (Manual) 1, Band Neutrophils 6, Polychromasia SLIGHT, Hypochromasia MARKED, Microcytosis MARKED, [place] Cells SLIGHT, Elliptocytes SLIGHT Assessment/Plan Assessment/Plan Assessment/Plan Diffuse abdominal pain- S/P R colon resection with primary anastomosis, lysis of adhesions, and release of adhesive band Hx colon resection/diverticulitis/perforation 2019 Anemia (Hgb 6.9-->6.4 today) -Negative hemoccult Vomiting- resolved HTN (174/96) UTI NPO (with ice chips) IV fluids Pain control and anti-emetics as needed Change incisional dressing Abx for UTI needed Blood transfusion planned for this morning per her nurse Monitor labs and vitals KING ARECHIGA DO 04/19/21 1608: Subjective Time Seen by a Provider: 12:48 Subjective/Events-last exam Pt seen and examined, lying in bed states it hurts to move. Tolerating minimal clears. Review of Systems General: No Chills; Malaise Pulmonary: No Dyspnea, No Cough Cardiovascular: No: Chest Pain, Palpitations Gastrointestinal: No: Nausea, Vomiting Genitourinary: No Dysuria Objective Exam General Appearance: Mild Distress, Obese Respiratory: Lungs Clear, No Accessory Muscle Use, No Respiratory Distress Cardiovascular: Regular Rate, Rhythm, No Murmur Gastrointestinal: soft, tenderness (diffuse; especially LLQ and RUQ), other (incision pink, intact and dry; dressing saturated with blood) Skin: Pallor Assessment/Plan Assessment/Plan Assessment/Plan Diffuse abdominal pain- S/P R colon resection with primary anastomosis, lysis of adhesions, and release of adhesive band Hx colon resection/diverticulitis/perforation 2020 Anemia (Hgb 6.9-->6.4 today) -Negative hemoccult. Pt was finishing a transfusion, continue to monitor Vomiting- resolved HTN (174/96) UTI NPO (with ice chips) IV fluids Pain control and anti-emetics as needed Change incisional dressing Abx for UTI needed, D/C fonseca Blood transfusion planned for this morning per her nurse Monitor labs and vitals Supervisory-Addendum Brief Verification & Attestation Participated in pt care: history, MDM, physical Personally performed: exam, history, MDM, supervision of care Care discussed with: Medical Student Procedures: n/a Verification and Attestation of Medical Student E/M Service A medical student performed and documented this service. I then reviewed and verified all information documented by the medical student and made modifications to such information, when appropriate. I personally performed a physical exam, medical decision making and then discussed any differences between the notes and made revisions as necessary to create one note. King Arechiga , 04/19/21 , 16:10 KATY ELLIS Apr 19, 2021 07:04 KING ARECHIGA DO Apr 19, 2021 16:08
[2021-04-19] MEDS: cefTRIAXone 1 GM PRE-MIX 50 ML IV SCH (08:38)
[2021-04-19] MEDS: ONDANSETRON 4 MG/2 ML (SDV) Z0FRAN IVP PRN ×2 (08:39→10:33)
[2021-04-19] MEDS: PANTOPRAZOLE 40 MG (PROTONIX) VIAL IVP SCH (08:39)
[2021-04-19] MEDS ORDERED: PANTOPRAZOLE 40 MG (PROTONIX) VIAL IV SCH (09:00)
--- NOTE | 2021-04-19 11:01 | Progress Note - Hospitalist ---
Subjective HPI/CC On Admission Date Seen by Provider: Apr 19, 2021 Time Seen by Provider: 10:56 Pt is a 46-year-old female with a past medical history of bowel resection, hypothyroidism, hypertension who presented to the emergency department due to abdominal pain. She states that it started in the middle of the night all of a sudden. She has a history of a bowel perforation from diverticulitis in May 2019 resulting in a bowel resection. She states the pain felt similar to that prompting her to seek evaluation in the emergency department. She vomited once as well. CT revealed distended bowel loops in the upper midline abdomen and closed-loop obstruction cannot be ruled out. She is being admitted for further management and plan for exploratory laparotomy by surgery. Subjective/Events-last exam Pt reports having persistent pain today and nausea. Nausea worse with any movement or even talking. Answered phone call during my exam and states talking made her very sick to her stomach. While in room I increased frequency and added secondary medication for nausea. Objective Exam Vital Signs Vital Signs Date Time Temp Pulse Resp B/P (MAP) Pulse Ox O2 Delivery O2 Flow Rate FiO2 04/19/21 08:23 36.4 59 20 141/84 (103) 99 Room Air 04/18/21 19:20 1 Capillary Refill : Less Than 3 SecondsLess Than 3 Seconds General Appearance: Mild Distress (appears uncomfortable), Obese Respiratory: No Respiratory Distress, Decreased Breath Sounds Cardiovascular: Regular Rate, Rhythm, No Murmur Gastrointestinal: Abnormal Bowel Sounds (absent), Distended, Tenderness (appropriately tender postoperatively, asked me to not palpate her abd) Neurologic/Psychiatric: Alert, Oriented x3 Results/Procedures Lab Laboratory Tests 04/19/21 05:59 Patient resulted labs reviewed. Imaging: Reviewed Imaging Report Assessment/Plan Assessment and Plan Assess & Plan/Chief Complaint Bowel Obstruction Anemia POD #1 ex lap with bowel resection and primary anastomosis Fentanyl for pain NPO IVF Zofran frequency increased and added phenergan Encouraged IS ordered blood was not given yesterday for unknown reason, discussed with RN who is giving it today Iron low, will replace with Infed prior to DC Hypothyroidism Resume synthroid when able to PO HTN History of HTN but has been off meds since her bowel resection and over 100lb weight loss BP elevated intermittently but likely due to pain and overall well controlled Trend UTI Rocephin Cultures with gram negative bacillus await further ID and sensitivity DVT: Lovenox if ok with Surgery Diagnosis/Problems Diagnosis/Problems (1) Hypothyroidism (2) Bowel obstruction (3) Microcytic anemia TRAE JORGE MD Apr 19, 2021 11:01
--- NOTE | 2021-04-19 14:32 | Anesthesia-General Post-Op ---
General Patient Condition Mental Status/LOC: Same as Preop Cardiovascular: Satisfactory Nausea/Vomiting: Absent Respiratory: Satisfactory Pain: Controlled Complications: Absent Post Op Complications Complications None Follow Up Care/Instructions Patient Instructions None needed. Anesthesia/Patient Condition Patient Condition Patient is doing well, is C/O some abd. pain which is to be expected, stable vital signs, no apparent adverse anesthesia problems. LYNN TOBAR DO Apr 19, 2021 14:32
[2021-04-19] MEDS ORDERED: hydrALAZINE (APESOLINE) 20 MG/ML VIAL IV PRN (15:00)
[2021-04-19] MEDS: ENOXAPARIN 40 MG/0.4 ML (LOVENOX) SYR SC SCH (18:40)
[2021-04-20] VITALS (10 sets, daily range): BP systolic 121–152; BP diastolic 74–93
[2021-04-20] MEDS: fentaNYL INJ 100 MCG/2 ML AMP IVP PRN ×3 (01:17→17:28)
[2021-04-20] MEDS: ONDANSETRON 4 MG/2 ML (SDV) Z0FRAN IVP PRN (01:17)
[2021-04-20] MEDS: NS IV 1000 ML 1,000 ML IV SCH ×3 (05:39→21:09)
[2021-04-20 05:50] LABS: HEMATOCRIT 26 % (35-52); MEAN CORPUSCULAR HEMOGLOBIN 17 pg (25-34); MEAN CORPUSCULAR HGB CONC 26 g/dL (32-36); MEAN CORPUSCULAR VOLUME 64 fL (80-99); MEAN PLATELET VOLUME 9.4 fL (9.0-12.2); PLATELET COUNT 451 10^3/uL (130-400); WHITE BLOOD COUNT 16.6 10^3/uL (4.3-11.0)
[2021-04-20 05:59] LABS: HEMOGLOBIN 6.9 g/dL (11.5-16.0)
[2021-04-20] MEDS ORDERED: NS IV 500 ML 500 ML ONE (06:23)
[2021-04-20 06:31] LABS: POTASSIUM 3.5 MMOL/L (3.6-5.0)
[2021-04-20 06:32] LABS: CALCIUM 9.5 MG/DL (8.5-10.1)
[2021-04-20 06:36] LABS: CREATININE SERUM 0.74 MG/DL (0.60-1.30)
--- NOTE | 2021-04-20 08:05 | Progress Note - Surgery ---
RADHA VEGA 04/20/21 0805: Subjective Date Seen by a Provider: Apr 20, 2021 Time Seen by a Provider: 07:26 Subjective/Events-last exam Pt is doing well, some abdominal pain, no emisis, no flatus or BM Tollerating liquid diet without issue. Incision is clean and dry Review of Systems General: No Chills, No Night Sweats, No Fatigue HEENT: No Head Aches, No Visual Changes, No Eye Pain Pulmonary: No Dyspnea, No Cough, No Pleuritic Chest Pain Cardiovascular: No: Chest Pain, Palpitations, Edema Gastrointestinal: Abdominal Pain; No: Nausea, Vomiting, Diarrhea, Hematochezia Genitourinary: No Dysuria, No Frequency, No Incontinence Musculoskeletal: No: neck pain, shoulder pain, back pain Neurological: No: Weakness, Numbness, Change in speech Objective Exam Vital Signs Date Time Temp Pulse Resp B/P (MAP) Pulse Ox O2 Delivery O2 Flow Rate FiO2 04/20/21 07:47 36.8 86 20 141/93 (109) 98 Room Air 04/20/21 03:58 37.3 76 18 121/74 (90) 96 Room Air 04/20/21 00:00 37.0 69 19 135/85 (102) 97 Room Air 04/19/21 20:00 36.4 63 16 150/92 (111) 96 Room Air 04/19/21 20:00 Room Air 04/19/21 16:30 36.2 61 18 138/86 (103) 98 Room Air 04/19/21 13:01 36.9 60 16 178/93 99 Room Air 04/19/21 12:00 36.9 65 16 172/88 (116) 97 Room Air 04/19/21 11:13 36.9 65 16 172/88 97 Room Air 04/19/21 10:58 36.9 112 18 149/86 98 04/19/21 08:23 36.4 59 20 141/84 (103) 99 Room Air I & O 04/20/21 07:00 Intake Total 1130 ml Output Total 2100 ml Balance -970 ml Capillary Refill : Less Than 3 SecondsLess Than 3 Seconds General Appearance: No Apparent Distress, WD/WN HEENT: PERRL/EOMI, Pharynx Normal Neck: Full Range of Motion, Non Tender, Supple Respiratory: Chest Non Tender, Lungs Clear, Normal Breath Sounds, No Accessory Muscle Use, No Respiratory Distress Cardiovascular: Regular Rate, Rhythm, No Edema, No Gallop, No JVD, No Murmur, Normal Peripheral Pulses Peripheral Pulses: 2+ Radial Pulses (R), 2+ Radial Pulses (L) Gastrointestinal: soft, no organomegaly, tenderness (diffuse; especially LLQ), other (incision pink, intact and dry) Extremity: Normal Capillary Refill, Normal Range of Motion, Non Tender, No Calf Tenderness Neurologic/Psychiatric: Alert, Oriented x3, Normal Mood/Affect Skin: Normal Color, Warm/Dry Lymphatic: No Adenopathy (Cervical or axillary) Results Lab Laboratory Tests 04/20/21 05:15: Glucometer 89 04/20/21 05:37: White Blood Count 16.6H, Red Blood Count 4.11, Hemoglobin 6.9*L, Hematocrit 26L, Mean Corpuscular Volume 64L, Mean Corpuscular Hemoglobin 17L, Mean Corpuscular Hemoglobin Concent 26L, Red Cell Distribution Width 20.8H, Platelet Count 451H, Mean Platelet Volume 9.4, Sodium Level 131L, Potassium Level 3.5L, Chloride Level 105, Carbon Dioxide Level 18L, Anion Gap 8, Blood Urea Nitrogen 5L, Creatinine 0.74, Estimat Glomerular Filtration Rate 102, BUN/Creatinine Ratio 7, Glucose Level 91, Calcium Level 9.5 Microbiology 04/18/21 Urine Culture - Preliminary, Resulted Escherichia coli Assessment/Plan Assessment/Plan Assessment/Plan Diffuse abdominal pain- S/P R colon resection with primary anastomosis, lysis of adhesions, and release of adhesive band Hx colon resection/diverticulitis/perforation 2019 S/P right colon resection Anemia -Negative hemoccult Vomiting- resolved HTN UTI Liquid diet IV fluids Pain control and anti-emetics as needed Change incisional dressing PRN Abx for UTI Blood transfusion planned for this morning (this will be her 2nd unit) Monitor labs and vitals OTILIO CRONIN DO 04/20/210: Subjective Subjective/Events-last exam Patient still having some pain better controlled today than yesterday. Patient is tolerating diet. She is not having nausea or vomiting. Patient really not having any flatus or bowel function she states. But also feels okay. She denies any nausea vomiting fever sweats chills shortness of breath or chest pain. Patient hemoglobin 6.9. White blood cell count decreasing from yesterday. Using incentive spirometer some. Not wanting to ambulate much. She is using SCDs when in bed. Objective Exam General Appearance: No Apparent Distress, WD/WN HEENT: PERRL/EOMI, Normal ENT Inspection Neck: Full Range of Motion, Non Tender, Supple Respiratory: Chest Non Tender, No Accessory Muscle Use, No Respiratory Distress Cardiovascular: Regular Rate, Rhythm, No JVD Gastrointestinal: soft, tenderness (Mostly incisional. Her incision is clean dry intact no signs of infection) Extremity: Normal Range of Motion, Non Tender, No Calf Tenderness Neurologic/Psychiatric: Alert, Oriented x3, Normal Mood/Affect Skin: Normal Color, Warm/Dry Lymphatic: No Adenopathy (Cervical or axillary) Assessment/Plan Assessment/Plan Assessment/Plan Hx colon resection/diverticulitis/perforation 2019 S/P right colon resection Anemia Vomiting- resolved HTN UTI Liquid diet IV fluids Pain control and anti-emetics as needed Change incisional dressing daily/PRN Abx for UTI Blood transfusion planned for this morning (this will be her 2nd unit) Monitor labs and vitals Encouraged IS and ambulation PT Supervisory-Addendum Brief Verification & Attestation Participated in pt care: history, MDM, physical Personally performed: exam, history, MDM, supervision of care Care discussed with: Medical Student Procedures: n/a Results interpretation: Verified all documentation Verification and Attestation of Medical Student E/M Service A medical student performed and documented this service in my presence. I review ed and verified all information documented by the medical student and made modifications to such information, when appropriate. I personally performed the physical exam and medical decision making. Otilio Cronin Apr 20, 2021,22:19 RADHA VEGA Apr 20, 2021 08:05 OTILIO CRONIN DO Apr 20, 2021 22:20
[2021-04-20] MEDS: PANTOPRAZOLE 40 MG (PROTONIX) VIAL IVP SCH (08:16)
[2021-04-20] MEDS: cefTRIAXone 1 GM PRE-MIX 50 ML IV SCH (08:17)
--- NOTE | 2021-04-20 10:35 | Progress Note - Hospitalist ---
Subjective HPI/CC On Admission Date Seen by Provider: Apr 20, 2021 Time Seen by Provider: 10:31 Pt is a 46-year-old female with a past medical history of bowel resection, hypothyroidism, hypertension who presented to the emergency department due to abdominal pain. She states that it started in the middle of the night all of a sudden. She has a history of a bowel perforation from diverticulitis in May 2019 resulting in a bowel resection. She states the pain felt similar to that prompting her to seek evaluation in the emergency department. She vomited once as well. CT revealed distended bowel loops in the upper midline abdomen and closed-loop obstruction cannot be ruled out. She is being admitted for further management and plan for exploratory laparotomy by surgery. Subjective/Events-last exam Pt reports doing ok. Pain persistent but controlled with pain regimen. About to get in the shower. No BM or flatus yet. Objective Exam Vital Signs Vital Signs Date Time Temp Pulse Resp B/P (MAP) Pulse Ox O2 Delivery O2 Flow Rate FiO2 04/20/21 08:00 Room Air 04/20/21 07:47 36.8 86 20 141/93 (109) 98 04/18/21 19:20 1 Capillary Refill : Less Than 3 SecondsLess Than 3 Seconds General Appearance: No Apparent Distress, Obese Respiratory: Lungs Clear, No Respiratory Distress Cardiovascular: Regular Rate, Rhythm, No Murmur Gastrointestinal: Abnormal Bowel Sounds (absent); No Distended, No Guarding; Tenderness (midline near surgical incision) Neurologic/Psychiatric: Alert, Oriented x3 Results/Procedures Lab Laboratory Tests 04/20/21 05:37 Patient resulted labs reviewed. Imaging: Reviewed Imaging Report Assessment/Plan Assessment and Plan Assess & Plan/Chief Complaint Bowel Obstruction Anemia POD #2 ex lap with bowel resection and primary anastomosis Fentanyl for pain CLD IVF Encouraged IS received one unit pRBCs yesterday and hgb still 6.9, transfuse another unit today Iron low, will replace with Infed prior to DC Hypothyroidism Resume synthroid in AM Check TSH HTN History of HTN but has been off meds since her bowel resection and over 100lb weight loss BP elevated intermittently but likely due to pain and overall well controlled Trend UTI Rocephin Cultures with e coli await sensitivity DVT: Lovenox if ok with Surgery Diagnosis/Problems Diagnosis/Problems (1) Hypothyroidism (2) Bowel obstruction (3) Microcytic anemia TRAE JORGE MD Apr 20, 2021 10:35
[2021-04-20] MEDS: LACTATED RINGERS 1,000 ML IV SCH ×2 (11:42→21:09)
[2021-04-20] MEDS: ENOXAPARIN 40 MG/0.4 ML (LOVENOX) SYR SC SCH (17:28)
[2021-04-21 00:35] VITALS: BP 158/99
[2021-04-21 04:00] VITALS: BP 148/93
[2021-04-21] MEDS: NS IV 1000 ML 1,000 ML IV SCH (04:02)
[2021-04-21] MEDS: LACTATED RINGERS 1,000 ML IV SCH (04:03)
[2021-04-21] MEDS: LEVOTHYROXINE 150 MCG (LEVOTHROID) TAB PO SCH (05:25)
[2021-04-21] MEDS: LEVOTHYROXINE 50 MCG (LEVOTHROID) TAB PO SCH (05:25)
[2021-04-21] MEDS: fentaNYL INJ 100 MCG/2 ML AMP IVP PRN (05:26)
[2021-04-21 05:31] LABS: HEMATOCRIT 29 % (35-52); HEMOGLOBIN 7.9 g/dL (11.5-16.0); MEAN CORPUSCULAR HEMOGLOBIN 18 pg (25-34); MEAN CORPUSCULAR HGB CONC 28 g/dL (32-36); MEAN CORPUSCULAR VOLUME 66 fL (80-99); MEAN PLATELET VOLUME 9.2 fL (9.0-12.2); PLATELET COUNT 488 10^3/uL (130-400); WHITE BLOOD COUNT 14.4 10^3/uL (4.3-11.0)
[2021-04-21 05:41] LABS: POTASSIUM 3.7 MMOL/L (3.6-5.0)
[2021-04-21 05:46] LABS: CREATININE SERUM 0.71 MG/DL (0.60-1.30)
[2021-04-21 07:46] VITALS: BP 168/92
--- NOTE | 2021-04-21 08:06 | Progress Note - Surgery ---
JASMINMAYRARADHA CHAKRABORTY 04/21/21 0806: Subjective Date Seen by a Provider: Apr 21, 2021 Time Seen by a Provider: 07:01 Subjective/Events-last exam Pt doing well, still complains of abdominal pain, tollerating liquid diet and requesting soft foods. No BM yet, no vomiting or nausea, has been out of bed yesterday, but not walking halls. She notes starting menses - Hgb 7.9 after one unit yesterday Review of Systems General: No Chills, No Night Sweats, No Fatigue, No Malaise; Appetite HEENT: No Head Aches, No Eye Pain, No Ear Pain, No Dysphasia Pulmonary: No Dyspnea, No Cough, No Pleuritic Chest Pain Cardiovascular: No: Chest Pain, Palpitations Gastrointestinal: Abdominal Pain; No: Nausea, Vomiting, Diarrhea, Melena, Hematochezia Genitourinary: No Dysuria, No Frequency, No Incontinence Musculoskeletal: No: neck pain, shoulder pain, back pain Neurological: No: Weakness, Numbness, Incoordination, Change in speech Objective Exam Vital Signs Date Time Temp Pulse Resp B/P (MAP) Pulse Ox O2 Delivery O2 Flow Rate FiO2 04/21/21 07:46 36.5 63 18 168/92 (117) 95 Room Air 04/21/21 04:00 36.0 69 18 148/93 (111) 96 Room Air 04/21/21 00:35 36.9 72 18 158/99 (118) 97 Room Air 04/20/21 20:00 Room Air 04/20/21 19:00 36.9 71 18 133/84 (100) 97 Room Air 04/20/21 18:44 36.5 66 18 136/82 98 Room Air 04/20/21 18:29 36.5 67 20 129/86 99 Room Air 04/20/21 16:20 36.9 86 16 132/89 (103) 98 Room Air 04/20/21 15:26 36.9 66 16 136/86 98 Room Air 04/20/21 15:11 36.9 66 16 132/89 Room Air 04/20/21 12:00 36.6 71 18 152/93 (112) 96 Room Air I & O0 04/21/21 07:00 Intake Total 4880 ml Output Total 1900 ml Balance 2980 ml Capillary Refill : Less Than 3 SecondsLess Than 3 Seconds General Appearance: No Apparent Distress, WD/WN HEENT: PERRL/EOMI, Pharynx Normal Neck: Full Range of Motion, Non Tender, Supple Respiratory: Chest Non Tender, Lungs Clear, Normal Breath Sounds, No Accessory Muscle Use, No Respiratory Distress Cardiovascular: Regular Rate, Rhythm, No Gallop, Normal Peripheral Pulses Peripheral Pulses: 2+ Radial Pulses (R), 2+ Radial Pulses (L) Gastrointestinal: soft, no organomegaly, no pulsatile mass, tenderness (RLQ and LUQ), other (incision is clean dry) Extremity: Normal Capillary Refill, Normal Range of Motion, Non Tender, No Calf Tenderness Neurologic/Psychiatric: Alert, Oriented x3, Normal Mood/Affect Skin: Normal Color, Warm/Dry Lymphatic: No Adenopathy (Cervical or axillary) Results Lab Laboratory Tests 04/20/21 10:37: Thyroid Stimulating Hormone (TSH) 39.08H 04/21/21 05:17: White Blood Count 14.4H, Red Blood Count 4.32, Hemoglobin 7.9L, Hematocrit 29L, Mean Corpuscular Volume 66L, Mean Corpuscular Hemoglobin 18L, Mean Corpuscular Hemoglobin Concent 28L, Red Cell Distribution Width 23.1H, Platelet Count 488H, Mean Platelet Volume 9.2, Sodium Level 132L, Potassium Level 3.7, Chloride Level 104, Carbon Dioxide Level 20L, Anion Gap 8, Blood Urea Nitrogen 4L, Creatinine 0.71, Estimat Glomerular Filtration Rate 107, BUN/Creatinine Ratio 6, Glucose Level 90, Calcium Level 10.0 Microbiology 04/18/21 Urine Culture - Preliminary, Resulted Escherichia coli Susceptibility To Follow Assessment/Plan Assessment/Plan Assessment/Plan Hx colon resection/diverticulitis/perforation 2019 S/P right colon resection Anemia Vomiting- resolved HTN UTI Plan advance soft diet Pain control and anti-emetics as needed Abx for UTI Monitor labs and vitals Encouraged IS and ambulation PT OTILIO CRONIN DO 04/23/211947: Subjective Subjective/Events-last exam Still with abdominal pain. Maybe slightly better. Tolerating liquid . No flatus or bm. Not walking much or using IS. No ther complaints. Denies n/v fever sweats chills shortness of breath or chest pain. Objective Exam General Appearance: No Apparent Distress, WD/WN HEENT: PERRL/EOMI, Normal ENT Inspection Neck: Full Range of Motion, Non Tender, Supple Respiratory: Chest Non Tender, No Accessory Muscle Use, No Respiratory Distress Cardiovascular: Regular Rate, Rhythm, No JVD Gastrointestinal: soft, no organomegaly, tenderness (incisional), other (incision is clean dry) Extremity: Non Tender, No Calf Tenderness Neurologic/Psychiatric: Alert, Oriented x3, Normal Mood/Affect Skin: Normal Color, Warm/Dry Lymphatic: No Adenopathy (Cervical or axillary) Assessment/Plan Assessment/Plan Assessment/Plan Hx colon resection/diverticulitis/perforation 2019 S/P right colon resection Anemia Vomiting- resolved HTN UTI Plan advance soft diet when bowel function Pain control and anti-emetics as needed Abx for UTI Monitor labs and vitals Encouraged IS and ambulation PT Supervisory-Addendum Brief Verification & Attestation Participated in pt care: history, MDM, physical Personally performed: exam, history, MDM, supervision of care Care discussed with: Medical Student Procedures: n/a Results interpretation: Verified all documentation Verification and Attestation of Medical Student E/M Service A medical student performed and documented this service in my presence. I reviewed and verified all information documented by the medical student and made modifications to such information, when appropriate. I personally performed the physical exam and medical decision making. Otilio Cronin, Apr 21, 2021,19:48 RADHA VEGA Apr 21, 2021 08:06 OTILIO CRONIN DO Apr 23, 2021 19:48
[2021-04-21] MEDS: PANTOPRAZOLE 40 MG (PROTONIX) VIAL IVP SCH (09:48)
[2021-04-21] MEDS: cefTRIAXone 1 GM PRE-MIX 50 ML IV SCH (09:48)
[2021-04-21 11:10] VITALS: BP 159/107
--- NOTE | 2021-04-21 12:11 | Progress Note - Hospitalist ---
Subjective HPI/CC On Admission Date Seen by Provider: Apr 21, 2021 Time Seen by Provider: 11:15 Pt is a 46-year-old female with a past medical history of bowel resection, hypothyroidism, hypertension who presented to the emergency department due to abdominal pain. She states that it started in the middle of the night all of a sudden. She has a history of a bowel perforation from diverticulitis in May 2019 resulting in a bowel resection. She states the pain felt similar to that prompting her to seek evaluation in the emergency department. She vomited once as well. CT revealed distended bowel loops in the upper midline abdomen and closed-loop obstruction cannot be ruled out. She is being admitted for further management and plan for exploratory laparotomy by surgery. Subjective/Events-last exam Pt reports feeling ok. Pain still present but controlled with current regimen. Would like to continue sleeping. Objective Exam Vital Signs Vital Signs Date Time Temp Pulse Resp B/P (MAP) Pulse Ox O2 Delivery O2 Flow Rate FiO2 04/21/21 11:10 36.6 58 18 159/107 (124) 97 Room Air 04/18/21 19:20 1 Capillary Refill : Less Than 3 SecondsLess Than 3 Seconds General Appearance: No Apparent Distress, Obese Respiratory: No Respiratory Distress Gastrointestinal: Normal Bowel Sounds, Soft; No Guarding; Other (surgical wound intact, victoria noted, no drainage) Neurologic/Psychiatric: Alert, Oriented x3 Results/Procedures Lab Laboratory Tests 04/21/21 05:17 Patient resulted labs reviewed. Imaging: Reviewed Imaging Report Assessment/Plan Assessment and Plan Assess & Plan/Chief Complaint Bowel Obstruction Anemia POD #3 ex lap with bowel resection and primary anastomosis Fentanyl for pain- add oxycodone as she has tolerated it in the past and encouraged oral pain meds for control CLD- advance when ok with surgery IVF Encouraged IS Hgb improved Iron low, will replace with Infed prior to DC Hypothyroidism Resumed synthroid this AM TSH 39, ?compliance as last refill noted was August of 2020 HTN History of HTN but has been off meds since her bowel resection and over 100lb weight loss BP elevated intermittently but likely due to pain and overall well controlled Trend UTI- uncomplicated cystitis Rocephin, completed course E coli on culture and only resistant to levaquin DVT: Lovenox Diagnosis/Problems Diagnosis/Problems (1) Hypothyroidism (2) Bowel obstruction (3) Microcytic anemia TRAE JORGE MD Apr 21, 2021 12:11
[2021-04-21] MEDS ORDERED: HYDROcodone/APAP 5 MG/325 MG (LORTAB) TAB PO PRN (14:00)
[2021-04-21] MEDS ORDERED: oxyCODONE 5 MG/5 ML ORAL SOLN (roxiCODONE) 5 ML UDC PO PRN (14:45)
[2021-04-21] MEDS: oxyCODONE/APAP 5/325MG (PERCOCET 5) TABLET PO PRN (15:18)
[2021-04-21 15:50] VITALS: BP 164/97
[2021-04-21] MEDS: ONDANSETRON 4 MG/2 ML (SDV) Z0FRAN IVP PRN ×2 (16:56→23:51)
[2021-04-21] MEDS: ENOXAPARIN 40 MG/0.4 ML (LOVENOX) SYR SC SCH (17:40)
[2021-04-21] MEDS ORDERED: HYDROmorphone 2 MG/ML VIAL (DILAUDID) IV PRN (19:15)
[2021-04-21 19:27] VITALS: BP 154/97
[2021-04-22] VITALS (7 sets, daily range): BP systolic 128–170; BP diastolic 84–103
[2021-04-22] MEDS: PROMETHAZINE INJ 25 MG/ML (PHENERGAN) AMP IVP PRN ×2 (03:14→08:27)
[2021-04-22] MEDS: oxyCODONE/APAP 5/325MG (PERCOCET 5) TABLET PO PRN ×3 (03:55→17:11)
[2021-04-22 05:49] LABS: HEMATOCRIT 28 % (35-52); HEMOGLOBIN 7.7 g/dL (11.5-16.0); MEAN CORPUSCULAR HEMOGLOBIN 18 pg (25-34); MEAN CORPUSCULAR HGB CONC 27 g/dL (32-36); MEAN CORPUSCULAR VOLUME 66 fL (80-99); MEAN PLATELET VOLUME 9.2 fL (9.0-12.2); PLATELET COUNT 517 10^3/uL (130-400); WHITE BLOOD COUNT 12.8 10^3/uL (4.3-11.0)
[2021-04-22 06:05] LABS: POTASSIUM 3.5 MMOL/L (3.6-5.0)
[2021-04-22 06:06] LABS: CALCIUM 9.7 MG/DL (8.5-10.1)
[2021-04-22] MEDS: LEVOTHYROXINE 150 MCG (LEVOTHROID) TAB PO SCH (06:08)
[2021-04-22] MEDS: LEVOTHYROXINE 50 MCG (LEVOTHROID) TAB PO SCH (06:08)
[2021-04-22 06:11] LABS: CREATININE SERUM 0.7 MG/DL (0.60-1.30)
--- NOTE | 2021-04-22 07:29 | Progress Note - Surgery ---
KATY ELLIS 04/22/21 0729: Subjective Date Seen by a Provider: Apr 22, 2021 Time Seen by a Provider: 07:15 Subjective/Events-last exam Pt reports feeling miserable this morning. Her pain is 4/10, mostly incisional. She thinks she passed gas but she is not sure. No bm yet. She reports her CLD has started to make her nauseous, and that she vomited twice yesterday. She did not notice any blood in her emesis, but said it was red (which she attributes to a popsicle she ate). Pt denies CP, palpitations, SOB, fever and nausea at the moment. Review of Systems General: No Chills; Fatigue, Malaise HEENT: No Head Aches, No Visual Changes Pulmonary: No Dyspnea; Cough Cardiovascular: No: Chest Pain, Palpitations Gastrointestinal: Vomiting (overnight), Abdominal Pain; No: Nausea Genitourinary: No Dysuria, No Frequency Musculoskeletal: No: neck pain, leg pain Neurological: No: Weakness, Change in speech Focused Exam Respiratory: Lungs Clear, Normal Breath Sounds, No Respiratory Distress Cardiovascular: Regular Rate, Rhythm, No Murmur Peripheral Pulses: 2+ Radial Pulses (R), 2+ Radial Pulses (L) Skin: normal color, warm/dry Objective Exam Vital Signs Date Time Temp Pulse Resp B/P (MAP) Pulse Ox O2 Delivery O2 Flow Rate FiO2 04/22/21 04:00 36.6 54 19 155/89 (111) 99 Room Air 04/22/21 00:00 37.2 73 19 170/103 (125) 98 Room Air 04/21/21 20:00 Room Air 04/21/21 19:27 36.8 70 18 154/97 (116) 96 Room Air 04/21/21 15:50 37.0 72 20 164/97 (119) 99 Room Air 04/21/21 11:10 36.6 58 18 159/107 (124) 97 Room Air 04/21/21 08:00 Room Air 04/21/21 07:46 36.5 63 18 168/92 (117) 95 Room Air I & O 04/22/21 07:00 Intake Total 3390 ml Output Total 1500 ml Balance 1890 ml Capillary Refill : Less Than 3 SecondsLess Than 3 Seconds General Appearance: No Apparent Distress, Obese Respiratory: Lungs Clear, Normal Breath Sounds, No Respiratory Distress Cardiovascular: Regular Rate, Rhythm, No Murmur Peripheral Pulses: 2+ Radial Pulses (R), 2+ Radial Pulses (L) Gastrointestinal: tenderness (LUQ and incisional), other (incision is clean dry and intact; no dressing) Extremity: Normal Inspection, No Pedal Edema Neurologic/Psychiatric: Alert, Oriented x3 Skin: Normal Color, Warm/Dry Lymphatic: No Adenopathy (Cervical or axillary) Results Lab Laboratory Tests 04/22/21 05:18: White Blood Count 12.8H, Red Blood Count 4.27, Hemoglobin 7.7L, Hematocrit 28L, Mean Corpuscular Volume 66L, Mean Corpuscular Hemoglobin 18L, Mean Corpuscular Hemoglobin Concent 27L, Red Cell Distribution Width 23.2H, Platelet Count 517H, Mean Platelet Volume 9.2, Sodium Level 133L, Potassium Level 3.5L, Chloride Level 105, Carbon Dioxide Level 19L, Anion Gap 9, Blood Urea Nitrogen 4L, Creatinine 0.70, Estimat Glomerular Filtration Rate 109, BUN/Creatinine Ratio 6, Glucose Level 100, Calcium Level 9.7 Microbiology 04/18/21 Urine Culture - Final, Complete Escherichia coli Escherichia coli#2 Assessment/Plan Assessment/Plan Assessment/Plan Hx colon resection/diverticulitis/perforation 2019 S/P right colon resection Anemia- Hgb stable (7.7 today, 7.9 yesterday) Vomiting HTN UTI- Abx completed Plan Do not advance diet, remain on CLD Pain control and anti-emetics as needed Monitor labs and vitals Encourage ambulation and IS KING MOCTEZUMA DO 04/22/21 1713: Subjective Time Seen by a Provider: 15:06 Subjective/Events-last exam Pt seen and examined, states she is mostly tolerating soft diet (started at lunch today) and not having anymore nausea. Pain is mostly controlled with oral pain meds. Pt states she is ambulating and using IS, however she is laying in bed with lights off. She thinks she will be ok to go home tomorrow. Review of Systems General: No Chills; Fatigue, Malaise Pulmonary: No Dyspnea; Cough Cardiovascular: No: Chest Pain, Palpitations Gastrointestinal: Abdominal Pain; No: Nausea, Vomiting Objective Exam General Appearance: No Apparent Distress, Obese Respiratory: Lungs Clear, Normal Breath Sounds, No Accessory Muscle Use, No R espiratory Distress Cardiovascular: Regular Rate, Rhythm Gastrointestinal: tenderness (LUQ and incisional), other (incision is clean dry and intact; no dressing) Assessment/Plan Assessment/Plan Assessment/Plan S/P right colon resection Anemia- Hgb stable (7.7 today, 7.9 yesterday) Vomiting HTN UTI- Abx completed Plan Advance diet as tolerated, continue pain control and anti-emetics as needed Encourage ambulation and IS Will send home tomorrow. Supervisory-Addendum Brief Verification & Attestation Participated in pt care: history, MDM, physical Personally performed: exam, history, MDM, supervision of care Care discussed with: Medical Student Procedures: n/a Verification and Attestation of Medical Student E/M Service A medical student performed and documented this service. I then reviewed and verified all information documented by the medical student and made modifications to such information, when appropriate. I personally performed a physical exam, medical decision making and then discussed any differences between the notes and made revisions as necessary to create one note. King Moctezuma , 04/22/21 , 17:13 KATY ELLIS Apr 22, 2021 07:29 KING MOCTEZUMA DO Apr 22, 2021 17:13
[2021-04-22] MEDS: PANTOPRAZOLE 40 MG (PROTONIX) VIAL IVP SCH (08:27)
--- NOTE | 2021-04-22 09:56 | Physical Therapy Evaluation ---
PT Evaluation-General Medical Diagnosis Admission Date Apr 18, 2021 at 12:37 Medical Diagnosis: abdominal pain/anemia Onset Date: Apr 18, 2021 Therapy Diagnosis Therapy Diagnosis: debility/weakness Height/Weight Height (Feet): 5 Height (Inches): 8 Weight (Pounds): 294 Precautions Precautions/Isolations: Fall Prevention, Standard Precautions Weight Bear Status Right Lower Extremity: Right Weight Bearing/Tolerated Left Lower Extremity: Left Weight Bearing/Tolerated Referral Physician: Roseanne Reason for Referral: Evaluation/Treatment Medical History Pertinent Medical History: Smoking Additional Medical History bowel perforation 2019 Current History ER with severe abdominal pain (s/p colon resection) Reviewed History: Yes Social History Home: Single Level Current Living Status: Spouse Prior Prior Level of Function SCALE: Activities may be completed with or without assistive devices. 5-[id number] completes the activity by him/herself with no assistance from a helper. 5-Set-up or Clean-up Assistance-helper sets up or cleans up; patient completes activity. [place] assists only prior to or following the activity. 4-Supervision or Touching Assistance-helper provides verbal cues and/or touching/steadying and/or contact guard assistance as patient completes activity. Assistance may be provided throughout the activity or intermittently. 3-Partial/Moderate Assistance-helper does LESS THAN HALF the effort. [place] lifts, holds or supports trunk or limbs, but provides less than half the effort. 2-Substantial/Maximal Assistance-helper does MORE THAN HALF the effort. [place] lifts or holds trunk or limbs and provides more than half the effort. 3-Xycvklnga-kqzzzj does ALL the effort. Patient does none of the effort to complete the activity. Or, the assistance of 2 or more helpers is required for the patient to complete the activity. If activity was not attempted, code reason: 7-Patient Refused. 9-Not Applicable-not attempted and the patient did not perform the activity befo re the current illness, exacerbation or injury. 10-Not Attempted due to Environmental Limitations-(lack of equipment, weather re straints, etc.). 88-Not Attempted due to Medical Conditions or Safety Concerns. Bed Mobility: 6 Transfers (B,C,W/C): 6 Gait: 6 Stairs: 6 Indoor Mobility (Ambulation): Independent Stairs: Independent Prior Devices Use: None PT Evaluation-Current Subjective Patient agrees to PT. Pain Numeric Pain Scale: 5-Moderate Pain Location: Lower Location Body Site: Abdomen Pain Description: Acute Objective Patient Orientation: Normal For Age Attachments: IV ROM/Strength ROM Lower Extremities bilateral LE WFL Strength Lower Extremities 4/5 grossly bilateral LE Integumentary/Posture Integumentary refer to nursing notes Bowel Incontinence: No Bladder Incontinence: No Posture WFL Neuromuscular (Tone, Coordination, Reflexes) grossly intact Sensory Vision: Functional Hearing: Functional Transfers Lying to Sitting/Side of Bed(Q: 6 Sit to Stand (QC): 6 Chair/Lkc-mx-Cfphe Xfer(QC): 6 Gait Does the Patient Walk?: Yes Mode of Locomotion: Walk Anticipated Mode of Locomotion: Walk Walk 10 feet (QC): 6 Walk 50 ft with 2 Turns(QC): 6 Walk 150 ft (QC): 6 Distance: 500' Gait Assistive Device: FWW Comments/Gait Description safe and functional with no deviation Balance Sitting Static: Normal Sitting Dynamic: Normal Standing Static: Normal Standing Dynamic: Normal Assessment/Needs Patient is currently at [facility] with all gross motor skills and does not require skilled PT intervention. Patient instructed to ambulate PRN in hallway. RN notified. Rehab Potential: Fair PT Plan Treatment/Plan Treatment Plan: Discontinue PT, goals met Treatment Duration: Apr 22, 2021 Frequency: 1 time per week Estimated Hrs Per Day: .25 hour per day Patient and/or Family Agrees t: Yes Time/GCodes Time In: 815 Time Out: 827 Total Billed Treatment Time: 12 Total Billed Treatment 1 visit EVMod 12 min SEUN SAMUELS PT Apr 22, 2021 09:56
--- NOTE | 2021-04-22 11:02 | Occ Therapy Progress Note ---
Therapy Progress Note OT orders received and chart reviewed. OT provided education on purpose and benefit of OT, pt indicates she has no concerns with her ability to complete ADLs. Pt was up with PT earlier, independent 500' using FWW with functional mobility. Pt indicates she is independent with toileting and eating. OT educated pt on OT role in education on AE for LE dressing, as pt had recent colon resection and may have difficulties with LE dressing due to pain. Pt declined attempting ADLs at this time, requesting to rest. Pt again states she has no concerns with ADLs and doesn't want further OT services. OT to d/c pt at this time per pt request. If further OT services indicated or pt has decline with ADLs, please send new orders. D/C from OT. 1, visit. 1025 JANE LOBATO OT Apr 22, 2021 11:02
[2021-04-22] MEDS: ONDANSETRON 4 MG/2 ML (SDV) Z0FRAN IVP PRN (17:11)
[2021-04-22] MEDS: ENOXAPARIN 40 MG/0.4 ML (LOVENOX) SYR SC SCH (17:12)
--- NOTE | 2021-04-22 19:23 | Progress Note - Hospitalist ---
Subjective HPI/CC On Admission Date Seen by Provider: Apr 22, 2021 Time Seen by Provider: 10:20 Pt is a 46-year-old female with a past medical history of bowel resection, hypothyroidism, hypertension who presented to the emergency department due to abdominal pain. She states that it started in the middle of the night all of a sudden. She has a history of a bowel perforation from diverticulitis in May 2019 resulting in a bowel resection. She states the pain felt similar to that prompting her to seek evaluation in the emergency department. She vomited once as well. CT revealed distended bowel loops in the upper midline abdomen and closed-loop obstruction cannot be ruled out. She is being admitted for further management and plan for exploratory laparotomy by surgery. Subjective/Events-last exam She is feeling a bit better. She wants to eat solid food. She is still having some pain but not related to intake. She has not had any bowel movements yet. She thinks she is passing gas. Objective Exam Vital Signs Vital Signs Date Time Temp Pulse Resp B/P (MAP) Pulse Ox O2 Delivery O2 Flow Rate FiO2 04/22/21 16:00 37.0 60 16 143/86 (105) 96 Room Air 04/18/21 19:20 1 Capillary Refill : Less Than 3 SecondsLess Than 3 Seconds General Appearance: No Apparent Distress, Obese Respiratory: No Respiratory Distress, Decreased Breath Sounds Cardiovascular: Regular Rate, Rhythm, No Murmur Gastrointestinal: Soft, Abnormal Bowel Sounds (hypoactive) Extremity: Normal Inspection, No Pedal Edema Neurologic/Psychiatric: Alert, Normal Mood/Affect Skin: Normal Color, Warm/Dry Results/Procedures Lab Laboratory Tests 04/22/21 05:18 Patient resulted labs reviewed. Imaging: Reviewed Imaging Report Assessment/Plan Assessment and Plan Assess & Plan/Chief Complaint Bowel Obstruction Anemia POD #4 ex lap with bowel resection and primary anastomosis Continue pain regimen CLD- advance when ok with surgery IV fluids Incentive spirometry Hemoglobin stable Iron low, will replace with Infed prior to DC Hypothyroidism Continue synthroid TSH 39, ?compliance as last refill noted was August of 2020 HTN History of HTN but has been off meds since her bowel resection and over 100lb weight loss BP elevated intermittently but likely due to pain and overall well controlled Trend UTI- uncomplicated cystitis, resolved DVT: Lovenox Diagnosis/Problems Diagnosis/Problems (1) Bowel obstruction Status: Acute (2) Hypothyroidism Status: Acute (3) Microcytic anemia Status: Acute PACHECO HATFIELD MD Apr 22, 2021 19:23
[2021-04-23] MEDS: oxyCODONE/APAP 5/325MG (PERCOCET 5) TABLET PO PRN ×3 (03:04→16:11)
[2021-04-23] MEDS: PROMETHAZINE INJ 25 MG/ML (PHENERGAN) AMP IVP PRN (03:04)
[2021-04-23 03:49] VITALS: BP 138/84
[2021-04-23 05:26] LABS: HEMATOCRIT 28 % (35-52); HEMOGLOBIN 7.4 g/dL (11.5-16.0); MEAN CORPUSCULAR HEMOGLOBIN 18 pg (25-34); MEAN CORPUSCULAR HGB CONC 27 g/dL (32-36); MEAN CORPUSCULAR VOLUME 67 fL (80-99); MEAN PLATELET VOLUME 9.4 fL (9.0-12.2); PLATELET COUNT 515 10^3/uL (130-400); WHITE BLOOD COUNT 11.6 10^3/uL (4.3-11.0)
[2021-04-23 05:52] LABS: CALCIUM 9.5 MG/DL (8.5-10.1); CREATININE SERUM 0.78 MG/DL (0.60-1.30); POTASSIUM 3.6 MMOL/L (3.6-5.0)
[2021-04-23] MEDS: LEVOTHYROXINE 150 MCG (LEVOTHROID) TAB PO SCH (06:23)
[2021-04-23] MEDS: LEVOTHYROXINE 50 MCG (LEVOTHROID) TAB PO SCH (06:23)
--- NOTE | 2021-04-23 06:50 | Progress Note - Surgery ---
KATY ELLIS 04/23/21 0650: Subjective Date Seen by a Provider: Apr 23, 2021 Time Seen by a Provider: 06:30 Subjective/Events-last exam Pt reports 4/10 pain this morning around her incision. She has passed no gas and has not had a bowel movement. Her dys2 diet began last night. She had pork, mash ed potatoes, green beans and apple crisp. She states it made her slightly nauseous at first, but she did not vomit. The pt notes intermittant R flank pain (0/10 currently). Denies burning with urination or increased freq. She states poking it makes it worse. No discomfort in her left flank. Pressure over R flank induced pain. Denies CP, palpitations, SOB, and fever currently. Pt reported removing her gown in her sleep. Physical exam was done with blankets over exposed areas. Review of Systems General: No Chills; Fatigue HEENT: No Head Aches, No Visual Changes Pulmonary: No Dyspnea, No Cough Cardiovascular: No: Chest Pain, Palpitations Gastrointestinal: Nausea, Abdominal Pain; No: Vomiting Genitourinary: No Dysuria, No Frequency Musculoskeletal: back pain (intermittent R flank); No: neck pain, leg pain Neurological: No: Weakness, Change in speech Focused Exam Respiratory: Lungs Clear, No Respiratory Distress Cardiovascular: Regular Rate, Rhythm, No Murmur Peripheral Pulses: 2+ Radial Pulses (R), 2+ Radial Pulses (L) Skin: normal color, warm/dry, other (incision clean, dry and intact (no dressing)) Objective Exam Vital Signs Date Time Temp Pulse Resp B/P (MAP) Pulse Ox O2 Delivery O2 Flow Rate FiO2 04/23/21 03:49 37.4 68 16 138/84 (102) 96 Room Air 04/23/21 03:30 37.4 04/23/21 03:04 36.8 04/22/21 23:32 36.8 58 16 140/84 (102) 97 Room Air 04/22/21 20:10 Room Air 04/22/21 20:00 36.9 63 16 128/84 (99) 96 Room Air 04/22/21 16:00 37.0 60 16 143/86 (105) 96 Room Air 04/22/21 11:51 36.8 62 20 128/84 (99) 97 Room Air 04/22/21 08:00 Room Air 04/22/21 07:44 37.0 55 16 142/97 (112) 96 Room Air I & O 04/23/21 07:00 Intake Total 1080 ml Output Total 1100 ml Balance -20 ml Capillary Refill : Less Than 3 SecondsLess Than 3 Seconds General Appearance: No Apparent Distress, Obese Respiratory: Lungs Clear, Normal Breath Sounds, No Respiratory Distress Cardiovascular: Regular Rate, Rhythm, No Murmur Peripheral Pulses: 2+ Radial Pulses (R), 2+ Radial Pulses (L) Gastrointestinal: soft, tenderness (diffuse; especially around incision), other (incision is clean dry and intact; no dressing) Extremity: Normal Inspection, No Pedal Edema Neurologic/Psychiatric: Alert, Oriented x3, Normal Mood/Affect Skin: Normal Color, Warm/Dry Results Lab Laboratory Tests 04/23/21 05:09: White Blood Count 11.6H, Red Blood Count 4.13, Hemoglobin 7.4L, Hematocrit 28L, Mean Corpuscular Volume 67L, Mean Corpuscular Hemoglobin 18L, Mean Corpuscular H emoglobin Concent 27L, Red Cell Distribution Width 23.9H, Platelet Count 515H, Mean Platelet Volume 9.4, Sodium Level 136, Potassium Level 3.6, Chloride Level 105, Carbon Dioxide Level 21, Anion Gap 10, Blood Urea Nitrogen 7, Creatinine 0.78, Estimat Glomerular Filtration Rate 96, BUN/Creatinine Ratio 9, Glucose Level 92, Calcium Level 9.5 Microbiology 04/18/21 Urine Culture - Final, Complete Escherichia coli Escherichia coli#2 Assessment/Plan Assessment/Plan Assessment/Plan S/P right colon resection Anemia- Hgb 7.4 today, 7.7 yesterday Vomiting- resolved HTN (138/84 today) UTI --R flank pain- CT showed no acute kidney findings; may need repeat urine culture or alternate abx Plan Advance diet as tolerated Continue pain control and anti-emetics as needed Encourage ambulation and IS Will send home today KING MOCTEZUMA DO 04/23/21 1536: Subjective Time Seen by a Provider: 12:00 Subjective/Events-last exam Pt seen and examined, doing ok and ready to go home. Review of Systems General: No Chills Pulmonary: No Dyspnea, No Cough Cardiovascular: No: Chest Pain, Palpitations Gastrointestinal: Nausea, Abdominal Pain; No: Vomiting Objective Exam General Appearance: No Apparent Distress Respiratory: Lungs Clear, No Accessory Muscle Use, No Respiratory Distress Gastrointestinal: normal bowel sounds, soft, tenderness (mostly at incision), other (incision is clean dry and intact; no dressing) Assessment/Plan Assessment/Plan Assessment/Plan S/P right colon resection Anemia- Hgb 7.4 today, 7.7 yesterday Vomiting- resolved HTN (138/84 today) UTI --R flank pain- CT showed no acute kidney findings; may need repeat urine culture or alternate abx Plan Advance diet as tolerated Continue pain control and anti-emetics as needed Encourage ambulation and IS Will send home today Supervisory-Addendum Brief Verification & Attestation Participated in pt care: history, MDM, physical Personally performed: exam, history, MDM, supervision of care Care discussed with: Medical Student Procedures: n/a Verification and Attestation of Medical Student E/M Service A medical student performed and documented this service. I then reviewed and verified all information documented by the medical student and made modificat ions to such information, when appropriate. I personally performed a physical exam, medical decision making and then discussed any differences between the notes and made revisions as necessary to create one note. King Moctezuma , 04/23/21 , 15:36 KATY ELLIS Apr 23, 2021 06:50 KING MOCTEZUMA DO Apr 23, 2021 15:36
[2021-04-23 07:46] VITALS: BP 121/79
[2021-04-23] MEDS: PANTOPRAZOLE 40 MG (PROTONIX) VIAL IVP SCH (08:52)
[2021-04-23 11:13] VITALS: BP 122/79
[2021-04-23] MEDS: ONDANSETRON 4 MG/2 ML (SDV) Z0FRAN IVP PRN (11:15)
[2021-04-23] MEDS ORDERED: OXYC1TAB87 PO (15:38)
--- NOTE | 2021-04-23 15:39 | Discharge Inst-Surgical ---
Discharge Inst-Surgical Depart Medication/Instructions New, Converted or Re-Newed RX: Transmitted to Pharmacy Patient Instructions Follow up Appt: Make appointment for 1 week. [phone] Instructions: No lifting greater than 20 pounds. No strenuous activity. May shower in 24 hours, no tub bath or soaking. Use incentive spirometer at home as directed. No Smoking Skin/Wound Care: May remove bandages in am. You need to leave the Dermabond on incision it will fall off on it's own. Symptoms to Report: Appetite Changes, Extremity Discoloration, Numbness/Tingling, Swelling Increased, Bleeding Excessive, Eyesight Changes, Pain Increased, Urine Color Change, Constipation(Persistent), Fever over 101 degree F, Pain/Pressure in chest, Urinating Difficulty, Cough Up/Vomit Blood, Heart Beat Irreg/Pounding, Pain/Pressure in jaw, Cramps in feet or legs, Lightheadedness, Pain/Pressure in shoulder, Diarrhea(Persistent), Memory Changes Suddenly, Questions/Concerns, Weight gain consecutive days, Dizziness/Fainting, Nausea/Vomiting, Shortness of Breath, Weight gain over 2 pounds If questions or concerns contact your physician Or seek help at emergency department. Activity Activity as Tolerated: Yes Activity Instructions: Avoid Stress to Incision Driving Instructions: No Driving/Refer to Dr. Singleton Discharge Diet: No Restrictions Diet After 24 Hours: Clear Liquid if Nauseous If Any Problems/Questions/Issu: Contact Your Physician, Go to Emergency Room Skin/Wound Care Infection Signs and Symptoms: Increased Redness, Foul Odor of Wound, Increased Drainage, Skin Itchy or Has a Rash, Increased Swelling, Temperature Above 101 F Bathing Instructions: Shower Stitches/[place]/Dermabond Dis: Care of KARENA Carroll DO Apr 23, 2021 15:39
[2021-04-23 16:26] VITALS: BP 141/94
[2021-04-23 17:14] VITALS: BP 141/94
--- NOTE | 2021-04-23 18:29 | Discharge Summary ---
Discharge Summary Hospital Course Problems/Dx: (1) Bowel obstruction Status: Acute Qualifiers: Qualified Codes: K56.2 - Volvulus (2) Hypothyroidism Status: Acute (3) Microcytic anemia Status: Acute (4) Volvulus of colon Status: Acute (5) Obstructed internal hernia Status: Acute Hospital Course Date of Admission: Apr 18, 2021 at 12:37 Admission Diagnosis : Bowel obstruction Family Physician/Provider: No,Local Physician Date of Discharge: 04/23/21 Discharge Diagnosis: Large bowel obstruction secondary to volvulus and internal hernia Hospital Course: Ashley Watters is a 46 year old female with PMH perforated diverticulitis s/p partial colectomy who presented with abdominal pain and was admitted with large bowel obstruction. She underwent exploratory laparotomy with general surgery and was found to have an internal hernia and volvulus. They performed a partial colectomy. She did well post-operatively. She was discharged home in stable condition. She will follow up with surgery in about a week. Labs and Pending Lab Test: Laboratory Tests 04/23/21 05:09: White Blood Count 11.6H, Red Blood Count 4.13, Hemoglobin 7.4L, Hematocrit 28L, Mean Corpuscular Volume 67L, Mean Corpuscular Hemoglobin 18L, Mean Corpuscular Hemoglobin Concent 27L, Red Cell Distribution Width 23.9H, Platelet Count 515H, Mean Platelet Volume 9.4, Sodium Level 136, Potassium Level 3.6, Chloride Level 105, Carbon Dioxide Level 21, Anion Gap 10, Blood Urea Nitrogen 7, Creatinine 0.78, Estimat Glomerular Filtration Rate 96, BUN/Creatinine Ratio 9, Glucose Level 92, Calcium Level 9.5 Microbiology 04/18/21 Urine Culture - Final, Complete Escherichia coli Escherichia coli#2 Home Meds Active Percocet 5-325 mg Tablet (Oxycodone HCl/Acetaminophen) 1 Each Tablet 1 Tab PO Q4H PRN Reported Aleve (Naproxen Sodium) 220 Mg Tablet 220 Mg PO DAILY PRN Levothyroxine Sodium 200 Mcg Tablet 200 Mcg PO DAILY Assessment/Pt Instructions See surgical instructions Discharge Planning: >30 minutes discharge planning Discharge Instructions Discharge Diet: No Restrictions Activity as Tolerated: Yes Discharge Physical Examination Vital Signs Vital Signs Date Time Temp Pulse Resp B/P (MAP) Pulse Ox O2 Delivery O2 Flow Rate FiO2 04/23/21 17:14 36.8 68 18 141/94 98 Room Air 1.00 General Appearance: No Apparent Distress, Obese Respiratory: Lungs Clear, No Respiratory Distress Cardiovascular: Regular Rate, Rhythm, No Murmur Gastrointestinal: Normal Bowel Sounds, Soft Extremity: Normal Inspection, No Pedal Edema Skin: Normal Color, Warm/Dry Neurologic/Psychiatric: Alert, Other (flat affect) Allergies: Coded Allergies: hydrocodone (Verified Allergy, Intermediate, 04/21/21) PT STATES MEDICATION MAKES HER VERY ILL meperidine (Unverified Allergy, Mild, 03/29/09) morphine (Unverified Allergy, Mild, 06/11/08) prochlorperazine (Unverified Allergy, Mild, 06/11/08) ketamine (Verified Allergy, Unknown, 04/18/21) Discharge Summary Date of Admission Apr 18, 2021 at 12:37 Date of Discharge Apr 23, 2021 at 17:05 Discharge Date: Apr 23, 2021 Discharge Time: 17:05 Admission Diagnosis Bowel Obstruction Consults/Procedures Consulations General surgery Procedures Exploratory laparotomy Discharge Diagnosis Large bowel obstruction (1) Bowel obstruction Status: Acute Qualifiers: Qualified Codes: K56.2 - Volvulus (2) Obstructed internal hernia Status: Acute (3) Volvulus of colon Status: Acute (4) Hypothyroidism Status: Acute (5) Microcytic anemia Status: Acute PACHECO HATFIELD MD Apr 23, 2021 18:29
== END 2021-04-23 17:05 | disposition home or self-care (01) | DRG 329 ==
LOC: EDUNIT# 10:20 → ER 10:22 → 4TH 12:37
PROVIDERS: ADMIT Family Medicine; ATTEND Internal Medicine
PROC: 0DNH0ZZ Release Cecum, Open Approach (ICD-10-PCS; 2021-04-18)
PROC: 0DTJ0ZZ Resection of Appendix, Open Approach (ICD-10-PCS; 2021-04-18)
PROC: 0DBB0ZZ Excision of Ileum, Open Approach (ICD-10-PCS; 2021-04-18)
PROC: 0DTF0ZZ Resection of Right Large Intestine, Open Approach (ICD-10-PCS; principal; 2021-04-18 17:09)
DX: K46.0 Unspecified abdominal hernia with obstruction, without gangrene (principal); K56.2 Volvulus; K56.51 Intestinal adhesions [bands], with partial obstruction; N39.0 Urinary tract infection, site not specified; D64.9 Anemia, unspecified; E03.9 Hypothyroidism, unspecified; I10 Essential (primary) hypertension; F17.210 Nicotine dependence, cigarettes, uncomplicated; K21.9 Gastro-esophageal reflux disease without esophagitis; K57.90 Diverticulosis of intestine, part unspecified, without perforation or abscess without bleeding; R11.10 Vomiting, unspecified
CPT/HCPCS: 36415; 74177; 80048; 80053; 81000; 82728; 82947; 83540; 83550; 83690; 84443; 85007; 85025; 85027; 86850; 86900; 86901; 86920; 87077; 87088; 87186; 94664; 96361; 96365; 96375; 96376